=== PATIENT | female | born 1950 | race Caucasian/White ===

== ENCOUNTER 2016-10-15 00:55 | Emergency (ER) | payer MEDICARE, OTHER ==
[2016-10-15] MEDS ORDERED: ONDANSETRON 4 MG/2 ML VIAL IVP STA (02:07)
[2016-10-15] MEDS ORDERED: IPRATROPIUM-ALBUTEROL 3 ML NEB INHALATION STA (02:08)
[2016-10-15] MEDS ORDERED: SODIUM CHLORIDE 0.9% 1,000 ML IV ONE (02:08)
[2016-10-15] MEDS ORDERED: IBUPROFEN 600 MG STARTER PACK 4 TAB BTL PO STA (02:08)
[2016-10-15] MEDS ORDERED: ACETAMINOPHEN IV (For NPO) 1,000 MG in EMPTY BAG 1 BAG IVPB STA (02:12)
[2016-10-15 02:38] LABS: Basophils % (A) 1 %; CH 27.2; Eosinophils # (A) 0.2 k/uL (0-0.7); Eosinophils % (A) 3 %; HCT 36.8 % (34.0-46.0); HDW 2.54; HGB 11.7 gm/dL (11.4-16.0); Luc # (Auto) 0.21; Luc % (Auto) 3; Lymphocytes # (A) 0.8 k/uL (1.0-4.8); Lymphocytes % (A) 10 %; MCH 27.2 pg (25.0-35.0); MCHC 31.8 g/dL (31.0-37.0); MCV 85.6 fL (80.0-100.0); Mean Platelet Volume 7.3; Monocytes # (A) 0.4 k/uL (0-1.0); Monocytes % (A) 5 %; Neutrophils # (A) 6.2 k/uL (1.3-7.7); Neutrophils % (A) 80 %; RDW 15.1 % (11.5-15.5); WBC 7.8 k/uL (3.8-10.6); WBC (Perox) 8.07
--- NOTE | 2016-10-15 02:47 | ED ---
Abdominal Pain HPI - General Chief Complaint: Abdominal Pain Stated Complaint: fever,weakness,nausea Time Seen by Provider: 10/15/16 01:36 Source: patient, RN notes reviewed Mode of arrival: wheelchair Limitations: no limitations - History of Present Illness Initial Comments: Patient is a 66-year-old female chief complaint of fever and upper respiratory symptoms for approximately one day. She reports that she was seen at [facility] emergency department switch her to double ear infection and sinusitis and was placed on amoxicillin. She reports she took her antibiotic dose today. She states that she went to bed and then woke up with severe nauseated feeling. She denies taking any Motrin Tylenol for fever or pain. Patient reports that she felt very weak and felt that she needed to come the emergency department. She states that she's been trying the remain hydrated. She does have a significant cough. She states that she did see the initial provider yesterday they did no chest x-ray or any other lab work. They did swab her throat for strep which was negative. - Related Data Home Medications Medication Instructions Recorded Confirmed Cholecalciferol [Vitamin D3] 5,000 unit PO DAILY 05/29/14 05/30/14 Diazepam [Valium] 5 mg PO TID PRN 05/29/14 05/30/14 FLUoxetine HCL [PROzac] 80 mg PO DAILY 05/29/14 05/30/14 Hydrochlorothiazide 25 mg PO DAILY 05/29/14 05/30/14 Levothyroxine Sodium [Synthroid] 75 mcg PO DAILY 05/29/14 05/30/14 Loratadine [Claritin] 10 mg PO DAILY 05/29/14 05/30/14 Pantoprazole Sodium [Protonix] 40 mg PO DAILY 05/29/14 05/30/14 Sucralfate [Carafate] 1 gm PO ACHS 05/29/14 05/30/14 traZODone HCL [Desyrel] 150 mg PO HS 05/29/14 05/30/14 Previous Rx's Medication Instructions Recorded Ondansetron Odt [Zofran Odt] 4 mg PO Q8HR PRN #12 tab 10/15/16 Allergies Allergy/AdvReac Type Severity Reaction Status Date / Time Iodinated Contrast Media - Allergy Anaphylaxis Verified 10/15/16 01:26 Oral and [Iodinated Contrast Media - IV Dye] Review of Systems ROS Statement: Those systems with pertinent positive or pertinent negative responses have been documented in the HPI. ROS Other: All systems not noted in ROS Statement are negative. Past Medical History Past Medical History: Deep Vein Thrombosis (DVT), Fibromyalgia, GERD/Reflux, Hyperlipidemia, Hypertension, Pulmonary Embolus (PE), Rheumatoid Arthritis (RA) , Thyroid Disorder Additional Past Medical History / Comment(s): colitis, migraines, "inflammed stomach", hx PE 2011, spinal stenosis History of Any Multi-Drug Resistant Organisms: None Reported Past Surgical History: Bariatric Surgery, Joint Replacement, Orthopedic Surgery , Tonsillectomy Additional Past Surgical History / Comment(s): lap band, then removed, knee surg., left and right knee replaced Past Anesthesia/Blood Transfusion Reactions: Motion Sickness, Postoperative Nausea & Vomiting (PONV) Past Psychological History: Anxiety, Depression Smoking Status: Former smoker Past Alcohol Use History: Occasional Past Drug Use History: None Reported General Exam Limitations: no limitations Course Vital Signs 10/15/16 01:20 Temperature 100.3 F H Pulse Rate 77 Respiratory 18 Rate Blood Pressure 120/84 O2 Sat by Pulse 98 Oximetry Medical Decision Making - Medical Decision Making Patient is a 66-year-old female chief complaint of fever and upper respiratory symptoms for approximately one day. She reports that she was seen at [facility] emergency department switch her to double ear infection and sinusitis and was placed on amoxicillin. She reports she took her antibiotic dose today. She states that she went to bed and then woke up with severe nauseated feeling. She denies taking any Motrin Tylenol for fever or pain. Patient reports that she felt very weak and felt that she needed to come the emergency department. She states that she's been trying the remain hydrated. She does have a significant cough. She states that she did see the initial provider yesterday they did no chest x-ray or any other lab work. They did swab her throat for strep which was negative. Patient is given IV fluids and lab work was obtained. Chest x-ray and KUB also obtained. Patient's chest x-ray and abdominal x-ray showed no evidence of any acute process. Patient's labs are also negative for anything acute. Negative influenza screen. Patient was given Ofirmev and by mouth ibuprofen. Patient reports that she is feeling better at this time. I discussed that she needs to complete the antibiotic and is too early to switch anything at this time. Patient agrees. Patient advised to follow up with Dr. Flores on Monday. I discussed that she should return to emergency department if any worsening signs or symptoms occur. Patient agrees with treatment plan will comply. Patient will be given a prescription for Zofran for her nausea. - Lab Data Result diagrams: 10/15/16 02:25 10/15/16 02:25 Lab Results 10/15/16 10/15/16 10/15/16 Range/Units 02:25 02:25 02:25 WBC 7.8 (3.8-10.6) k/uL RBC 4.30 (3.80-5.40) m/uL Hgb 11.7 (11.4-16.0) gm/dL Hct 36.8 (34.0-46.0) % MCV 85.6 (80.0-100.0) fL MCH 27.2 (25.0-35.0) pg MCHC 31.8 (31.0-37.0) g/dL RDW 15.1 (11.5-15.5) % Plt Count 264 (150-450) k/uL Neutrophils % 80 % Lymphocytes % 10 % Monocytes % 5 % Eosinophils % 3 % Basophils % 1 % Neutrophils # 6.2 (1.3-7.7) k/uL Lymphocytes # 0.8 L (1.0-4.8) k/uL Monocytes # 0.4 (0-1.0) k/uL Eosinophils # 0.2 (0-0.7) k/uL Basophils # 0.0 (0-0.2) k/uL Sodium 141 (137-145) mmol/L Potassium 3.9 (3.5-5.1) mmol/L Chloride 102 (98-107) mmol/L Carbon Dioxide 28 (22-30) mmol/L Anion Gap 11 mmol/L BUN 10 (7-17) mg/dL Creatinine 0.70 (0.52-1.04) mg/dL Est GFR (MDRD) Af Amer >60 (>60 ml/min/1.73 sqM) Est GFR (MDRD) Non-Af >60 (>60 ml/min/1.73 sqM) Glucose 100 H (74-99) mg/dL Calcium 8.9 (8.4-10.2) mg/dL Total Bilirubin 0.4 (0.2-1.3) mg/dL AST 24 (14-36) U/L ALT 28 (9-52) U/L Alkaline Phosphatase 79 (38-126) U/L Total Protein 6.7 (6.3-8.2) g/dL Albumin 3.9 (3.5-5.0) g/dL Amylase 49 (30-110) U/L Lipase 36 (23-300) U/L Urine Color Urine Appearance (Clear) Urine pH (5.0-8.0) Ur Specific [place] (1.001-1.035) Urine Protein (Negative) Urine Glucose (UA) (Negative) Urine Ketones (Negative) Urine Blood (Negative) Urine Nitrite (Negative) Urine Bilirubin (Negative) Urine Urobilinogen (<2.0) mg/dL Ur Leukocyte Esterase (Negative) Influenza Type A RNA Not Detected (Not Detectd) Influenza Type B (PCR) Not Detected (Not Detectd) 10/15/16 Range/Units 03:30 WBC (3.8-10.6) k/uL RBC (3.80-5.40) m/uL Hgb (11.4-16.0) gm/dL Hct (34.0-46.0) % MCV (80.0-100.0) fL MCH (25.0-35.0) pg MCHC (31.0-37.0) g/dL RDW (11.5-15.5) % Plt Count (150-450) k/uL Neutrophils % % Lymphocytes % % Monocytes % % Eosinophils % % Basophils % % Neutrophils # (1.3-7.7) k/uL Lymphocytes # (1.0-4.8) k/uL Monocytes # (0-1.0) k/uL Eosinophils # (0-0.7) k/uL Basophils # (0-0.2) k/uL Sodium (137-145) mmol/L Potassium (3.5-5.1) mmol/L Chloride (98-107) mmol/L Carbon Dioxide (22-30) mmol/L Anion Gap mmol/L BUN (7-17) mg/dL Creatinine (0.52-1.04) mg/dL Est GFR (MDRD) Af Amer (>60 ml/min/1.73 sqM) Est GFR (MDRD) Non-Af (>60 ml/min/1.73 sqM) Glucose (74-99) mg/dL Calcium (8.4-10.2) mg/dL Total Bilirubin (0.2-1.3) mg/dL AST (14-36) U/L ALT (9-52) U/L Alkaline Phosphatase (38-126) U/L Total Protein (6.3-8.2) g/dL Albumin (3.5-5.0) g/dL Amylase (30-110) U/L Lipase (23-300) U/L Urine Color Yellow Urine Appearance Clear (Clear) Urine pH 6.5 (5.0-8.0) Ur Specific [place] 1.015 (1.001-1.035) Urine Protein Negative (Negative) Urine Glucose (UA) Negative (Negative) Urine Ketones 1+ H (Negative) Urine Blood Negative (Negative) Urine Nitrite Negative (Negative) Urine Bilirubin Negative (Negative) Urine Urobilinogen <2.0 (<2.0) mg/dL Ur Leukocyte Esterase Negative (Negative) Influenza Type A RNA (Not Detectd) Influenza Type B (PCR) (Not Detectd) Disposition Clinical Impression: Nausea, Fever, Upper respiratory infection Disposition: HOME SELF-CARE Condition: Good Instructions: Upper Respiratory Infection (ED) Additional Instructions: Rest, increase fluids. Take nausea medication as directed. Continue to take Motrin Tylenol every 3 hours. Finish antibiotic prescription. Return to emergency department if any alarming signs or symptoms occur. Follow-up with primary care provider on Monday. Prescriptions: Ondansetron Odt [Zofran Odt] 4 mg PO Q8HR PRN #12 tab PRN Reason: Nausea Referrals: Omid Flores MD [Primary Care Provider] - 1-2 days Time of Disposition: 03:48
--- NOTE | 2016-10-15 02:50 | XR ---
EXAM: XR Chest, 2 Views. CLINICAL HISTORY: Reason: Pain TECHNIQUE: Frontal and lateral views of the chest. COMPARISON:02/07/11. FINDINGS: Lungs: Unremarkable. No consolidation. Pleural space: Unremarkable. No pneumothorax. Heart: Stable prominent cardiovascular silhouette. Mediastinum: Tortuous calcified thoracic aorta, unchanged. Bones/joints: Mild degenerative changes in the thoracic spine. Other findings: IMPRESSION: Stable mild cardiomegaly. No dense consolidation or effusion
[2016-10-15 02:51] LABS: ALT 28 U/L (9-52); AST 24 U/L (14-36); Alkaline Phosphatase 79 U/L (38-126); Amylase 49 U/L (30-110); Anion Gap 11 mmol/L; Blood Urea Nitrogen 10 mg/dL (7-17); Calcium 8.9 mg/dL (8.4-10.2); Carbon Dioxide 28 mmol/L (22-30); Chloride 102 mmol/L (98-107); Glucose 100 mg/dL (74-99); Non-African American GFR(MDRD) >60 (>60 ml/min/1.73 sqM); Potassium 3.9 mmol/L (3.5-5.1); Sodium 141 mmol/L (137-145); Total Bilirubin 0.4 mg/dL (0.2-1.3); Total Protein 6.7 g/dL (6.3-8.2)
--- NOTE | 2016-10-15 03:06 | XR ---
EXAM: XR Abdomen, 1 View. CLINICAL HISTORY: Reason: Pain TECHNIQUE: Frontal supine view of the abdomen/pelvis. COMPARISON: 02/07/11 FINDINGS: Intraperitoneal space: No free air. Gastrointestinal tract: Gas filled small and large bowel loops identified. Mild retained stool. Few scattered air-fluid levels in distal small bowel loops. This is nonspecific. Organs: Faint calcific density projecting over the right midabdomen seen at L3 level. This measures approximately 3.6 mm. This may represent renal calculus. Multiple calcifications in the pelvis remain unchanged likely phleboliths. Bones/joints: See above. IMPRESSION: 1. Nonspecific bowel gas pattern with mild retained stool. 2. No free air. 3. Possible right renal calculus. Consider further evaluation with noncontrast CT of abdomen and pelvis for better visualization as indicated
[2016-10-15 03:42] LABS: Appearance,Urine Clear (Clear); Bilirubin,Urine Negative (Negative); Glucose,Urine (UA) Negative (Negative); Ketones,Urine 1+ (Negative); Leukocyte Esterase,Urine Negative (Negative); Nitrite,Urine Negative (Negative); PH, Urine 6.5 (5.0-8.0); Protein,Urine Negative (Negative); Specific Gravity,Urine 1.015 (1.001-1.035); UA Billing (MACRO vs. MICRO) CHEM; Urobilinogen,Urine <2.0 mg/dL (<2.0)
[2016-10-15] MEDS ORDERED: ONDANSETRON 4 MG ODT STARTER PACK 2 TAB BTL PO STA (03:46)
[2016-10-15 03:57] VITALS: BP 134/76; PULSE 88; RESP 19; TEMP 98.8
== END 2016-10-15 03:56 | disposition home or self-care (01) ==
LOC: EC 00:55
DX: R11.0 Nausea (principal); J06.9 Acute upper respiratory infection, unspecified; R10.9 Unspecified abdominal pain; R50.9 Fever, unspecified; I10 Essential (primary) hypertension; E07.9 Disorder of thyroid, unspecified; M06.9 Rheumatoid arthritis, unspecified; K21.9 Gastro-esophageal reflux disease without esophagitis; F32.9 Major depressive disorder, single episode, unspecified; F41.9 Anxiety disorder, unspecified; Z79.899 Other long term (current) drug therapy; Z87.891 Personal history of nicotine dependence; Z91.041 Radiographic dye allergy status; Z98.84 Bariatric surgery status
CPT/HCPCS: 36415; 94640; 80053; 82150; 83690; 85025; 81003; 87502; 71020; 74000; 99284; 96374; 96375; J2405; J0131; S0119

== ENCOUNTER → 2016-10-21 | Outpatient (CLI) | payer MEDICARE, OTHER ==
--- NOTE | 2016-10-21 10:50 | FL ---
EXAMINATION TYPE: FL small bowel follow through DATE OF EXAM: 10/21/2016 10:23 AM COMPARISON: NONE HISTORY: Rectal bleeding TECHNIQUE: The patient drank 2 cups of dilute barium. This was followed from the stomach to cecum. Th e terminal ileum was spotted. FINDINGS: Small bowel caliber is normal. The mucosal pattern throughout the small bowel is normal. Th e terminal ileum was spotted and appears unremarkable. IMPRESSION: NORMAL DEDICATED SMALL BOWEL FOLLOW-THROUGH.
== END | disposition home or self-care (01) ==
LOC: RADFLMAIN 08:37
PROVIDERS: ATTEND Surgery
DX: K92.2 Gastrointestinal hemorrhage, unspecified (principal)
CPT/HCPCS: 74250

== ENCOUNTER 2016-11-01 09:38 | Observation (INO) | payer MEDICARE, OTHER ==
[2016-11-01] MEDS ORDERED: SODIUM CHLORIDE 0.9% 1,000 ML IV STA (10:12)
[2016-11-01] MEDS ORDERED: ASPIRIN 81 MG CHEW PO STA (10:12)
--- NOTE | 2016-11-01 10:17 | ED ---
General Adult HPI - General Source: patient, RN notes reviewed Mode of arrival: ambulatory Limitations: no limitations <Kathie Stafford - Last Filed: 11/01/16 11:50> <Pete Dumont - Last Filed: 11/01/16 12:11> - General Chief complaint: Chest Pain Stated complaint: shoulder/chest pain Time Seen by Provider: 11/01/16 10:06 - History of Present Illness Initial comments: 66-year-old female presents emergency Department with chief complaint of a stabbing chest pain to the left upper chest. Patient states it started yesterday she went to her Dr. Paredes x-ray that was negative. Patient states today the pain is worse and is radiating to the back. Patient states she has had a cough episode of nausea with this. Patient states that she also has some shortness of breath. Patient denies any fever chills with this. Patient denies any other symptoms. Patient states that she feels somewhat ill but she has more the nausea. She thinks is more related to the pain as well. Patient states that she doesn't feel like she is sick with a cold. Patient states that she does have a history of a PE and DVT following an admission to the hospital. Patient is no longer on blood thinners.Patient denies any recent fever, chills , back pain, abdominal pain, vomiting, numbness or tingling, dysuria or hematuria, constipation or diarrhea, headaches or visual changes, or any other current symptoms. (Kathie Stafford) - Related Data Home Medications Medication Instructions Recorded Confirmed Cholecalciferol [Vitamin D3] 5,000 unit PO DAILY 05/29/14 11/01/16 Diazepam [Valium] 5 mg PO BID 05/29/14 11/01/16 FLUoxetine HCL [PROzac] 80 mg PO DAILY 05/29/14 11/01/16 Hydrochlorothiazide 25 mg PO DAILY 05/29/14 11/01/16 Levothyroxine Sodium [Synthroid] 75 mcg PO DAILY 05/29/14 11/01/16 Aspirin 81 mg PO DAILY 11/01/16 11/01/16 Ibuprofen [Motrin] 600 mg PO Q8HR PRN 11/01/16 11/01/16 Pantoprazole Sodium 20 mg PO DAILY 11/01/16 11/01/16 amLODIPine BESYLATE [Amlodipine 2.5 mg PO DAILY 11/01/16 11/01/16 Besylate] Previous Rx's Medication Instructions Recorded Ondansetron Odt [Zofran Odt] 4 mg PO Q8HR PRN #12 tab 10/15/16 Allergies Allergy/AdvReac Type Severity Reaction Status Date / Time Iodinated Contrast Media - Allergy Anaphylaxis Verified 11/01/16 10:13 Oral and [Iodinated Contrast Media - IV Dye] Review of Systems ROS Other: All systems not noted in ROS Statement are negative. <Kathie Stafford - Last Filed: 11/01/16 11:50> ROS Other: All systems not noted in ROS Statement are negative. <Pete Dumont - Last Filed: 11/01/16 12:11> ROS Statement: Those systems with pertinent positive or pertinent negative responses have been documented in the HPI. Past Medical History Past Medical History: Deep Vein Thrombosis (DVT), Fibromyalgia, GERD/Reflux, Hyperlipidemia, Hypertension, Pulmonary Embolus (PE), Rheumatoid Arthritis (RA) , Thyroid Disorder Additional Past Medical History / Comment(s): colitis, migraines, "inflammed stomach", hx PE 2011, spinal stenosis History of Any Multi-Drug Resistant Organisms: None Reported Past Surgical History: Bariatric Surgery, Joint Replacement, Orthopedic Surgery , Tonsillectomy Additional Past Surgical History / Comment(s): lap band, then removed, knee surg., left and right knee replaced Past Anesthesia/Blood Transfusion Reactions: Motion Sickness, Postoperative Nausea & Vomiting (PONV) Past Psychological History: Anxiety, Depression Smoking Status: Former smoker Past Alcohol Use History: Occasional Past Drug Use History: None Reported <Kathie Stafford - Last Filed: 11/01/16 11:50> General Exam Limitations: no limitations <Kathie Stafford - Last Filed: 11/01/16 11:50> <Pete Dumont - Last Filed: 11/01/16 12:11> - General Exam Comments Initial Comments: General: The patient is awake and alert, in no distress, and does not appear acutely ill. Eye: Pupils are equal, round and reactive to light, extra-ocular movements are intact; there is normal conjunctiva bilaterally. No signs of icterus. Ears, nose, mouth and throat: There are moist mucous membranes and no oral lesions. Neck: The neck is supple, there is no tenderness. Cardiovascular: There is a regular rate and rhythm. No murmur, rub or gallop is appreciated. Respiratory: Lungs are clear to auscultation, respirations are non-labored, breath sounds are equal. No wheezes, stridor, rales, or rhonchi. Gastrointestinal: Soft, non-distended, non-tender abdomen without masses or organomegaly noted. There is no rebound or guarding present. No CVA tenderness. Bowel sounds are unremarkable. Back: There is no tenderness to palpation in the midline. She has tenderness along the left upper chest wall. There is no obvious deformity. No rashes noted. Musculoskeletal: Normal ROM, no tenderness, There is no pedal edema. There is no calf tenderness or swelling. Sensation intact. Pulses equal bilaterally 2+. Neurological: CN II-XII intact, There are no obvious motor or sensory deficits. Coordination appears grossly intact. Speech is normal. Skin: Skin is warm and dry and no rashes or lesions are noted. Psychiatric: Cooperative, appropriate mood & affect, normal judgment. (Kathie Stafford) EKG Findings - EKG Comments: EKG Findings:: normal sinus rhythm 65 bpm, normal axis, no atopy, no S-T depressions or elevations, LVH <Kathie Stafford - Last Filed: 11/01/16 11:50> Medical Decision Making - Lab Data Result diagrams: 11/01/16 10:25 11/01/16 10:25 <Kathie Stafford - Last Filed: 11/01/16 11:50> - Lab Data Result diagrams: 11/01/16 10:25 11/01/16 10:25 <Pete Dumont - Last Filed: 11/01/16 12:11> - Medical Decision Making 66-year-old female presents to emergency room chief complaint of stabbing type chest pain. At this time patient's d-dimer is negative initial enzymes are negative. We will admit patient for continued cardiac monitoring and cardiac consultation. This is discussed with the patient who is in agreement with the plan. Patient does have the shortness of breath associated with a stabbing chest pain as well as nausea with the patient's age and there is some concern. Patient will be admitted to Dr. Miller. (Kathie Stafford) Patient reevaluated by myself, Dr. Dumont. Patient resting comfortably in bed still complaining of discomfort. Patient denies dyspnea. Pulses 2/4 throughout. Heart rate regular rate and rhythm without murmurs. Lungs are clear to auscultation. Case discussed with Dr. jaimes, who will admit for Dr. Flores. (Pete Dumont) - Lab Data Lab Results 11/01/16 11/01/16 11/01/16 Range/Units 10:25 10:25 10:25 WBC 6.5 (3.8-10.6) k/uL RBC 4.37 (3.80-5.40) m/uL Hgb 12.1 (11.4-16.0) gm/dL Hct 38.5 (34.0-46.0) % MCV 88.1 (80.0-100.0) fL MCH 27.7 (25.0-35.0) pg MCHC 31.4 (31.0-37.0) g/dL RDW 14.8 (11.5-15.5) % Plt Count 343 (150-450) k/uL Neutrophils % 68 % Lymphocytes % 22 % Monocytes % 4 % Eosinophils % 3 % Basophils % 1 % Neutrophils # 4.4 (1.3-7.7) k/uL Lymphocytes # 1.4 (1.0-4.8) k/uL Monocytes # 0.3 (0-1.0) k/uL Eosinophils # 0.2 (0-0.7) k/uL Basophils # 0.1 (0-0.2) k/uL Hypochromasia Slight PT (9.0-12.0) sec INR (<1.1) APTT (22.0-30.0) sec D-Dimer (<0.60) mg/L FEU Sodium 142 (137-145) mmol/L Potassium 4.3 (3.5-5.1) mmol/L Chloride 104 (98-107) mmol/L Carbon Dioxide 28 (22-30) mmol/L Anion Gap 10 mmol/L BUN 23 H (7-17) mg/dL Creatinine 0.64 (0.52-1.04) mg/dL Est GFR (MDRD) Af Amer >60 (>60 ml/min/1.73 sqM) Est GFR (MDRD) Non-Af >60 (>60 ml/min/1.73 sqM) Glucose 95 (74-99) mg/dL Calcium 9.2 (8.4-10.2) mg/dL Magnesium 1.9 (1.6-2.3) mg/dL Total Bilirubin 0.5 (0.2-1.3) mg/dL AST 18 (14-36) U/L ALT 21 (9-52) U/L Alkaline Phosphatase 77 (38-126) U/L Total Creatine Kinase 32 (30-135) U/L CK-MB (CK-2) <0.2 (0.0-2.4) ng/mL CK-MB (CK-2) Rel Index Troponin I <0.012 (0.000-0.034) ng/mL Total Protein 7.3 (6.3-8.2) g/dL Albumin 4.1 (3.5-5.0) g/dL 11/01/16 Range/Units 10:25 WBC (3.8-10.6) k/uL RBC (3.80-5.40) m/uL Hgb (11.4-16.0) gm/dL Hct (34.0-46.0) % MCV (80.0-100.0) fL MCH (25.0-35.0) pg MCHC (31.0-37.0) g/dL RDW (11.5-15.5) % Plt Count (150-450) k/uL Neutrophils % % Lymphocytes % % Monocytes % % Eosinophils % % Basophils % % Neutrophils # (1.3-7.7) k/uL Lymphocytes # (1.0-4.8) k/uL Monocytes # (0-1.0) k/uL Eosinophils # (0-0.7) k/uL Basophils # (0-0.2) k/uL Hypochromasia PT 10.0 (9.0-12.0) sec INR 1.0 (<1.1) APTT 22.9 (22.0-30.0) sec D-Dimer 0.20 (<0.60) mg/L FEU Sodium (137-145) mmol/L Potassium (3.5-5.1) mmol/L Chloride (98-107) mmol/L Carbon Dioxide (22-30) mmol/L Anion Gap mmol/L BUN (7-17) mg/dL Creatinine (0.52-1.04) mg/dL Est GFR (MDRD) Af Amer (>60 ml/min/1.73 sqM) Est GFR (MDRD) Non-Af (>60 ml/min/1.73 sqM) Glucose (74-99) mg/dL Calcium (8.4-10.2) mg/dL Magnesium (1.6-2.3) mg/dL Total Bilirubin (0.2-1.3) mg/dL AST (14-36) U/L ALT (9-52) U/L Alkaline Phosphatase (38-126) U/L Total Creatine Kinase (30-135) U/L CK-MB (CK-2) (0.0-2.4) ng/mL CK-MB (CK-2) Rel Index Troponin I (0.000-0.034) ng/mL Total Protein (6.3-8.2) g/dL Albumin (3.5-5.0) g/dL Disposition Time of Disposition: 11:50 Decision Date: 11/01/16 Decision Time: 11:50 <Kathie Stafford - Last Filed: 11/01/16 11:50> <Pete Dumont - Last Filed: 11/01/16 12:11> Clinical Impression: Chest pain Disposition: ADMITTED IP TO THIS [facility] Condition: Stable Referrals: Omid Flores MD [Primary Care Provider] - 1-2 days
[2016-11-01 10:32] LABS: Basophils # (A) 0.1 k/uL (0-0.2); Basophils % (A) 1 %; CH 26.9; CHCM 30.7; Eosinophils # (A) 0.2 k/uL (0-0.7); Eosinophils % (A) 3 %; HCT 38.5 % (34.0-46.0); HDW 2.38; HGB 12.1 gm/dL (11.4-16.0); Hypochromasia Slight; Luc # (Auto) 0.14; Luc % (Auto) 2; Lymphocytes # (A) 1.4 k/uL (1.0-4.8); Lymphocytes % (A) 22 %; MCH 27.7 pg (25.0-35.0); MCHC 31.4 g/dL (31.0-37.0); MCV 88.1 fL (80.0-100.0); Mean Platelet Volume 6.6; Monocytes # (A) 0.3 k/uL (0-1.0); Monocytes % (A) 4 %; Neutrophils # (A) 4.4 k/uL (1.3-7.7); Neutrophils % (A) 68 %; RBC 4.37 m/uL (3.80-5.40); RDW 14.8 % (11.5-15.5); WBC 6.5 k/uL (3.8-10.6); WBC (Perox) 6.29
[2016-11-01 10:47] LABS: Partial Thromboplastin Time 22.9 sec (22.0-30.0)
[2016-11-01 10:57] LABS: ALT 21 U/L (9-52); AST 18 U/L (14-36); Alkaline Phosphatase 77 U/L (38-126); Anion Gap 10 mmol/L; Blood Urea Nitrogen 23 mg/dL (7-17); Calcium 9.2 mg/dL (8.4-10.2); Carbon Dioxide 28 mmol/L (22-30); Chloride 104 mmol/L (98-107); Glucose 95 mg/dL (74-99); Magnesium 1.9 mg/dL (1.6-2.3); Non-African American GFR(MDRD) >60 (>60 ml/min/1.73 sqM); Potassium 4.3 mmol/L (3.5-5.1); Sodium 142 mmol/L (137-145); Total Bilirubin 0.5 mg/dL (0.2-1.3); Total Protein 7.3 g/dL (6.3-8.2)
[2016-11-01 11:02] LABS: Creatine Kinase 32 U/L (30-135)
[2016-11-01 11:15] LABS: Creatine Kinase MB <0.2 ng/mL (0.0-2.4); Troponin I <0.012 ng/mL (0.000-0.034)
--- NOTE | 2016-11-01 11:19 | XR ---
EXAMINATION TYPE: XR chest 2V DATE OF EXAM: 11/01/2016 10:39 AM COMPARISON: Prior chest x-ray October 15, 2016. HISTORY: Cough. TECHNIQUE: Frontal and lateral views of the chest are obtained. FINDINGS: There is no focal air space opacity, pleural effusion, or pneumothorax seen. The cardiac silhouette size is stable and enlarged. The osseous structures are intact. IMPRESSION: Cardiomegaly without acute pulmonary process.
[2016-11-01] MEDS ORDERED: NITROGLYCERIN OINT 1 INCH/GM PACKET TOPICAL STA (11:45)
[2016-11-01] MEDS ORDERED: MORPHINE SULFATE 4 MG/ML SYRINGE IVP STA (11:45)
[2016-11-01] MEDS ORDERED: NALOXONE 0.4 MG/ML 1 ML VIAL IV PRN (11:46)
[2016-11-01] MEDS ORDERED: ONDANSETRON ODT 4 MG TAB PO PRN (11:48)
[2016-11-01] MEDS ORDERED: IBUPROFEN 600 MG TAB PO PRN (11:48)
[2016-11-01] MEDS ORDERED: SODIUM CHLORIDE 0.9% 1,000 ML IV SCH (12:00)
[2016-11-01] MEDS: MORPHINE SULFATE 4 MG/ML SYRINGE IV PRN (16:18)
[2016-11-01 17:02] LABS: Creatine Kinase 24 U/L (30-135)
[2016-11-01 17:14] LABS: Creatine Kinase MB <0.2 ng/mL (0.0-2.4); Troponin I <0.012 ng/mL (0.000-0.034)
[2016-11-01] MEDS ORDERED: HYDROmorphone 1 MG/ML 1 ML SYRINGE IVP PRN (18:51)
[2016-11-01] MEDS: DIAZEPAM 5 MG TAB PO SCH ×2 (18:58→23:10)
[2016-11-01] MEDS ORDERED: DIAZEPAM 5 MG TAB PO SCH (21:00)
[2016-11-01 23:26] LABS: Creatine Kinase 21 U/L (30-135)
[2016-11-01 23:39] LABS: Creatine Kinase MB <0.2 ng/mL (0.0-2.4); Troponin I <0.012 ng/mL (0.000-0.034)
[2016-11-02] MEDS: MORPHINE SULFATE 4 MG/ML SYRINGE IV PRN ×3 (03:16→15:58)
[2016-11-02] MEDS ORDERED: LEVOTHYROXINE 75 MCG TAB PO SCH (06:30)
[2016-11-02] MEDS ORDERED: PANTOPRAZOLE 40 MG TABLET PO SCH (07:30)
[2016-11-02 07:35] LABS: Basophils % (A) 1 %; Eosinophils # (A) 0.2 k/uL (0-0.7); Eosinophils % (A) 5 %; HCT 33.2 % (34.0-46.0); HDW 2.35; Hypochromasia Marked; Luc # (Auto) 0.15; Luc % (Auto) 3; Lymphocytes # (A) 1.7 k/uL (1.0-4.8); Lymphocytes % (A) 33 %; MCH 26.8 pg (25.0-35.0); MCHC 29.6 g/dL (31.0-37.0); MCV 90.7 fL (80.0-100.0); Mean Platelet Volume 6.6; Monocytes # (A) 0.3 k/uL (0-1.0); Monocytes % (A) 7 %; Neutrophils # (A) 2.6 k/uL (1.3-7.7); Neutrophils % (A) 52 %; RBC 3.66 m/uL (3.80-5.40); RDW 14.8 % (11.5-15.5); WBC (Perox) 5.13
[2016-11-02 07:38] LABS: ALT 26 U/L (9-52); AST 14 U/L (14-36); Alkaline Phosphatase 64 U/L (38-126); Anion Gap 7 mmol/L; Blood Urea Nitrogen 18 mg/dL (7-17); Calcium 8.1 mg/dL (8.4-10.2); Carbon Dioxide 28 mmol/L (22-30); Chloride 106 mmol/L (98-107); Glucose 82 mg/dL (74-99); HGB 9.8 gm/dL (11.4-16.0); Non-African American GFR(MDRD) >60 (>60 ml/min/1.73 sqM); Sodium 141 mmol/L (137-145); Total Bilirubin 0.4 mg/dL (0.2-1.3); Total Protein 5.6 g/dL (6.3-8.2)
--- NOTE | 2016-11-02 07:59 | CONS ---
DATE OF CONSULTATION: This is a 66-year-old lady who sees Dr. Ros Kruse in the outpatient setting and also sees Dr. Omid Flores as an outpatient from a primary care standpoint, came into the hospital with an episode of what she describes as chest pain. She complains of anterior chest pain with specifically tenderness over the rib and there is also some radiation laterally along to the back along the direction of her rib. This pain started spontaneously, she just moved her head and then suddenly started having pain in the chest. She has not done any physical activity to precipitate this. It is worse when she takes a deep breath and there is focal tenderness. Her d-dimer is normal. Within the last one year she had a stress test performed according to the patient in our office and this was normal. She does have history of rheumatoid arthritis, hypertensive cardiovascular disease, mild depression and hypothyroidism. At the time of my evaluation, she is comfortable, but when she takes a deep breath, she has point tenderness and pain. PAST MEDICAL HISTORY: 1. Rheumatoid arthritis. 2. Hypertension. 3. Hypothyroidism on replacement therapy. 4. Depression. Medications at home include Synthroid, ibuprofen, hydrochlorothiazide, 2.5 mg of amlodipine, Prozac and she also takes Valium and aspirin 81 mg daily. ALLERGIES: IV contrast. REVIEW OF SYSTEMS: Unremarkable other than above-mentioned facts. On examination, blood pressure is 136/70, pulse rate 70 per minute, regular. HEENT: Unremarkable. Fundus was not examined by me. Neck is supple. No JVD. I do not hear a carotid bruit. There is no thyromegaly. Heart exam reveals S1 and S2 heard normally. Lungs are clear. There is some splinting because she seems to have pain when she takes a deep breath. There is tenderness on the left anterior rib. Abdomen is soft, nontender. Lower extremities reveal normal pulses. No edema. Central nervous system is grossly within normal limits. EKG revealed sinus mechanism. No acute changes. IMPRESSION: 1. Musculoskeletal chest wall pain with tenderness. 2. History of osteoarthritis and rheumatoid arthritis, status post bilateral knee arthroplasty. 3. Hypertension. 4. Hypothyroidism. 5. History of a negative stress test per patient within the last one year. RECOMMENDATIONS: I am recommending that we will try some Dilaudid for the pain since she has taken Motrin without help. Hopefully this will help her pain. No intervention necessary from a cardiac standpoint. Her troponin levels are normal. Will check one additional troponin and give her some Dilaudid for symptomatic treatment and continue her other medications. I discussed my thoughts in detail with the patient. Thank you very much for the consult.
[2016-11-02] MEDS ORDERED: FLUoxetine HCL 20 MG CAP PO SCH (09:00)
[2016-11-02] MEDS ORDERED: amLODIPine 2.5 MG TAB PO SCH (09:00)
[2016-11-02] MEDS ORDERED: HYDROCHLOROTHIAZIDE 25 MG TAB PO SCH (09:00)
[2016-11-02] MEDS ORDERED: ASPIRIN 325 MG TAB PO SCH (09:00)
[2016-11-02 09:29] VITALS: BMI 39.2
[2016-11-02] MEDS: DIAZEPAM 5 MG TAB PO SCH (10:31)
[2016-11-02] MEDS ORDERED: CHOLECALCIFEROL 1,000 UNIT TAB PO SCH (12:00)
--- NOTE | 2016-11-02 12:02 | ECHOF ---
Referral Reason:chest pain MEASUREMENTS -------- HEIGHT: 162.6 cm WEIGHT: 103.4 kg BP: 147/71 RVIDd: 3.4 cm (< 3.3) IVSd: 1.6 cm (0.6 - 1.1) LVIDd: 4.2 cm (3.9 - 5.3) LVPWd: 1.5 cm (0.6 - 1.1) IVSs: 2.1 cm LVIDs: 2.7 cm LVPWs: 1.7 cm LA Diam: 2.7 cm (2.7 - 3.8) LAESV Index (A-L): 28.03 ml/m Ao Diam: 3.2 cm (2.0 - 3.7) AV Cusp: 1.5 cm (1.5 - 2.6) LA Diam: 2.6 cm (2.7 - 3.8) MV EXCURSION: 13.883 mm (> 18.000) MV EF SLOPE: 83 mm/s (70 - 150) EPSS: 0.4 cm MV E Mp: 0.67 m/s MV DecT: 228 ms MV A Mp: 0.65 m/s MV E/A Ratio: 1.03 AR PHT: 799 ms RAP: 5.00 mmHg RVSP: 43.88 mmHg FINDINGS -------- Sinus rhythm. This was a technically good study. There is moderate concentric left ventricular hypertrophy. Overall left ventricular systolic function is normal with, an EF between 55 - 60 %. The right ventricle is mildly enlarged. Normal LA size by volume 22+/-6 ml/m2. The right atrium is normal in size. Aortic valve is trileaflet and is mildly thickened. There is [id number] aortic regurgitation. The mitral valve leaflets are mildly thickened. Mild mitral annular calcification present. Mild mitral regurgitation is present. Mild tricuspid regurgitation present. There is mild pulmonary hypertension. The right ventricular systolic pressure, as measured by Doppler, is 43.88mmHg. Pulmonic valve appears structurally normal. The aortic root size is normal. There is no pericardial effusion. CONCLUSIONS -------- 1. Sinus rhythm. 2. The mitral valve leaflets are mildly thickened. 3. Mild mitral annular calcification present. 4. Mild mitral regurgitation is present. 5. Mild tricuspid regurgitation present. 6. There is mild pulmonary hypertension. 7. The right ventricular systolic pressure, as measured by Doppler, is 43.88mmHg. 8. Pulmonic valve appears structurally normal. 9. The aortic root size is normal. 10. There is no pericardial effusion. 11. This was a technically good study. 12. There is moderate concentric left ventricular hypertrophy. 13. Overall left ventricular systolic function is normal with, an EF between 55 - 60 %. 14. The right ventricle is mildly enlarged. 15. Normal LA size by volume 22+/-6 ml/m2. 16. The right atrium is normal in size. 17. Aortic valve is trileaflet and is mildly thickened. 18. There is [id number]-[id number] aortic regurgitation. DIRECTOR OF OCCUPATIONAL HEALTH: Cory Alvarez RDCS
--- NOTE | 2016-11-02 12:53 | HP ---
DATE OF ADMISSION: 11/01/2016 PRESENTING COMPLAINT: Left chest wall pain. HISTORY OF PRESENTING COMPLAINT: This is a very pleasant 66-year-old patient of Dr. Flores with rather extensive medical condition. Patient's chronic stable medical conditions include DVT, GERD, hyperlipidemia, hypertension, PE's, osteoarthritis of multiple joints, hypothyroid, rheumatoid arthritis, peptic ulcer disease, hiatal hernia, diverticulosis, spinal stenosis, chronic low back pain, anxiety, depression. Patient had sinus symptoms, draining nose and subsequently had bouts of coughing. Subsequently, she developed pain below the left clavicle, left shoulder area, which is worse deep breathing and worse with moving, sometimes feels very sharp, somebody is taking a dagger, very positional. She feels better in a position. There is no precordial pain, no radiation otherwise. No dizziness. Patient's family doctor was concerned of a cardiac condition; hence, patient was sent in to rule out a cardiac cause. Patient denies any cardiac history, otherwise. REVIEW OF SYSTEMS: CONSTITUTIONAL: None. HEENT: None. RESPIRATORY: None. CARDIOVASCULAR: No precordial pain. GASTROINTESTINAL: Heartburn. GENITOURINARY: None. MUSCULOSKELETAL: Aches and pains in multiple joints. DERMATOLOGICAL: None. HEMATOLOGICAL: None. LYMPHATICS: None. PSYCHIATRY: Some anxiety. NEUROLOGICAL: None. Past history of DVT, GERD, hyperlipidemia, hypertension, PE, osteoarthritis, hypothyroid, rheumatoid arthritis, peptic ulcer disease, hiatal hernia, diverticulosis, spinal stenosis, anxiety, depression. PAST SURGICAL HISTORY: Bariatric surgery, joint replacement, tonsillectomy, lap band, then removed, bilateral knee scopes, bilateral total knee replacement, colonoscopy, EGD. PSYCH HISTORY: Anxiety, depression. SOCIAL HISTORY: Lives by herself. Patient smoked from 1988 to 2008 off-and-on. Alcohol occasional. FAMILY HISTORY: Father had bladder cancer and heart condition. HOME MEDICATIONS: 1. Aspirin 81 mg a day. 2. Protonix 20 mg a day. 3. Vitamin D3 five thousand units p.o. daily. 4. Zofran 4 mg q.8 p.r.n. 5. Synthroid 75 mcg a day. 6. Ibuprofen 600 mg p.o. q.8 p.r.n. 7. Hydrochlorothiazide 25 mg p.o. daily. 8. Amlodipine 2.5 mg a day. 9. Prozac 80 mg a day. 10. Valium 5 mg p.o. b.i.d. Allergies to IV CONTRAST DYE. On examination, vital signs on presentation: Temperature 97.3, pulse 56, respiration 18, blood pressure 148/81, pulse ox 96% on room air. GENERAL APPEARANCE: Obese; BMI of 39.2, lying in bed, not in distress. EYES: Pupils equal. Conjunctivae normal. HEENT: External appearance of nose and ears normal. Oral cavity normal. NECK: JVD not raised. Mass not palpable. Respiratory effort normal. Lungs are clear. CARDIOVASCULAR: First and second sounds normal. No edema. ABDOMEN: Soft, nontender. Liver and spleen not palpable. LYMPHATIC: No lymph nodes palpable in neck or axillae. PSYCHIATRY: Alert and oriented x3. Mood and affect was normal. NEUROLOGICAL: Pupils equal. Cranial nerves grossly intact. Power and sensation grossly intact. MUSCULOSKELETAL: Patient got reproducible pain in the left clavicle area. INVESTIGATIONS: White count 5, hemoglobin 9.8, potassium 4.00. Chest x-ray, some cardiomegaly, nil acute. EKG normal sinus rhythm. ASSESSMENT: 1. This is a patient with left chest wall pain, could be either pleurisy from recent sinus infection, viral nature or musculoskeletal in nature. Because of cardiomegaly, there is a concern of the cardiac condition, hence Cardiology was concerned. 2. Obesity; body mass index of 39.2. 3. Chronic gastroesophageal reflux disease. 4. Essential hypertension. 5. Hyperlipidemia. 6. Primary osteoarthritis of multiple joints, bilateral. 7. Hypothyroid. 8. Peptic ulcer disease. 9. Chronic diverticulosis. 10. Chronic anxiety, depression, not otherwise specified. PLAN: Serial cardiac ( ), Cardiology was consulted. Care was discussed with the patient. Patient was given NSAIDs, hold off the ibuprofen.
[2016-11-02 13:03] VITALS: PULSE 64; TEMP 98.3
[2016-11-02 16:14] VITALS: BP 166/77; RESP 16
--- NOTE | 2016-11-02 22:21 | PN ---
Mrs. Espinoza is doing better today. Her chest wall pain is somewhat improved. Vital signs are stable. S1, S2 heard normally. Lungs are clear. Abdomen and lower extremity exam unchanged. From a cardiac standpoint, no intervention is necessary. Patient can be discharged on symptomatic therapy and I will leave it up to the primary care physician or hospitalist. Will see as needed.
== END 2016-11-02 18:25 | disposition home or self-care (01) ==
LOC: EC 09:38 → 3OBS 12:11
PROVIDERS: ADMIT Hospitalist; ATTEND Hospitalist
DX: R07.89 Other chest pain (principal); Z68.39 Body mass index [BMI] 39.0-39.9, adult; E66.9 Obesity, unspecified; K21.9 Gastro-esophageal reflux disease without esophagitis; I11.9 Hypertensive heart disease without heart failure; E78.5 Hyperlipidemia, unspecified; M19.91 Primary osteoarthritis, unspecified site; E03.9 Hypothyroidism, unspecified; K27.9 Peptic ulcer, site unspecified, unspecified as acute or chronic, without hemorrhage or perforation; K57.90 Diverticulosis of intestine, part unspecified, without perforation or abscess without bleeding; F41.9 Anxiety disorder, unspecified; F32.9 Major depressive disorder, single episode, unspecified; G89.29 Other chronic pain; M54.5 Low back pain; R05 Cough; R06.02 Shortness of breath; R11.0 Nausea; M06.9 Rheumatoid arthritis, unspecified; Z86.711 Personal history of pulmonary embolism; Z86.718 Personal history of other venous thrombosis and embolism; Z79.899 Other long term (current) drug therapy; Z79.82 Long term (current) use of aspirin; Z91.041 Radiographic dye allergy status; Z87.891 Personal history of nicotine dependence; Z96.653 Presence of artificial knee joint, bilateral; Z82.49 Family history of ischemic heart disease and other diseases of the circulatory system
CPT/HCPCS: 96374; 96361 ×2; 99285; 36415; 93005; 93306; 85379; 80053 ×2; 82550; 82553; 83735; 84484; 85025 ×2; 85610; 85730; 71020; G0378 ×2; J2270 ×2; J1170; 96375; 96376

== ENCOUNTER 2017-01-31 09:52 | Emergency (ER) | payer MEDICARE, OTHER ==
[2017-01-31] MEDS ORDERED: SODIUM CHLORIDE 0.9% 1,000 ML IV STA (10:12)
[2017-01-31] MEDS ORDERED: HYDROmorphone 1 MG/ML 1 ML SYRINGE IVP STA (10:12)
[2017-01-31] MEDS ORDERED: ONDANSETRON 4 MG/2 ML VIAL IVP STA (10:12)
[2017-01-31] MEDS ORDERED: PANTOPRAZOLE 40 MG/10 ML VIAL IVP STA (10:12)
--- NOTE | 2017-01-31 10:16 | ED ---
GI Bleed HPI - General Chief complaint: GI Bleed Stated complaint: Rectal Bleeding, Vomiting Time Seen by Provider: 01/31/17 10:00 Source: patient, RN notes reviewed Mode of arrival: wheelchair Limitations: no limitations - History of Present Illness Initial comments: This is a 66-year-old female history of diverticular disease in her mid episodes of bleeding also peptic ulcers who states she's had bright red blood per rectum for last week but started developing nausea and abdominal cramps today. She states goes from the epigastric region down to the suprapubic region. 12/31 severity she also has a headache. She's had decreased oral intake. No fevers chills or sweats. She does not feel lightheaded or dizzy at this point she states but it does progress that far which she had more bleeding. She does state that she has internal hemorrhoids. MD complaint: gross hematochezia - Related Data Home Medications Medication Instructions Recorded Confirmed Cholecalciferol [Vitamin D3] 5,000 unit PO DAILY 05/29/14 01/31/17 Diazepam [Valium] 5 mg PO BID 05/29/14 01/31/17 Hydrochlorothiazide 25 mg PO DAILY 05/29/14 01/31/17 Levothyroxine Sodium [Synthroid] 75 mcg PO DAILY 05/29/14 01/31/17 Aspirin 81 mg PO DAILY 11/01/16 01/31/17 amLODIPine BESYLATE [Amlodipine 2.5 mg PO DAILY 11/01/16 01/31/17 Besylate] Biotin 5 mg PO DAILY 01/31/17 01/31/17 Cyanocobalamin (Vitamin B-12) 1,000 mcg PO DAILY 01/31/17 01/31/17 [Vitamin B-12] FLUoxetine HCL [PROzac] 20 mg PO HS 01/31/17 01/31/17 FLUoxetine HCL [PROzac] 60 mg PO QAM 01/31/17 01/31/17 Ibuprofen [Motrin] 600 mg PO AC-TID PRN 01/31/17 01/31/17 Loratadine [Claritin] 10 mg PO DAILY 01/31/17 01/31/17 Pantoprazole Sodium [Protonix] 40 mg PO DAILY 01/31/17 01/31/17 Pravastatin Sodium [Pravachol] 20 mg PO DAILY 01/31/17 01/31/17 Previous Rx's Medication Instructions Recorded Hydrocortisone Suppository 25 mg RECTAL BID #14 supp 01/31/17 [Anusol-Hc] Allergies Allergy/AdvReac Type Severity Reaction Status Date / Time Iodinated Contrast Media - Allergy Anaphylaxis Verified 01/31/17 10:42 Oral and [Iodinated Contrast Media - IV Dye] Review of Systems ROS Statement: Those systems with pertinent positive or pertinent negative responses have been documented in the HPI. ROS Other: All systems not noted in ROS Statement are negative. Past Medical History Past Medical History: Asthma, Deep Vein Thrombosis (DVT), Fibromyalgia, GERD/ Reflux, GI Bleed, Hyperlipidemia, Hypertension, Pneumonia, Pulmonary Embolus (PE ), Rheumatoid Arthritis (RA), Thyroid Disorder Additional Past Medical History / Comment(s): Multiple PEs bilaterally, PUD, "inflammed stomach", hiatal hernia, IBS, colitis, diverticular dx, rectal bleed , bronchitis, migraines, low back pain, spinal stenosis, past vertigo once, migraines, hypothyroid, hayfever, sinus problems History of Any Multi-Drug Resistant Organisms: None Reported Past Surgical History: Bariatric Surgery, Joint Replacement, Orthopedic Surgery , Tonsillectomy Additional Past Surgical History / Comment(s): lap band-then removed, bilateral knee scopes with R side done twice, bilateral total knee replacements, colonoscopy/EGD, D&C Past Anesthesia/Blood Transfusion Reactions: Motion Sickness, Postoperative Nausea & Vomiting (PONV) Past Psychological History: Anxiety, Depression Smoking Status: Former smoker Past Alcohol Use History: Occasional Past Drug Use History: None Reported - Past Family History Father Family Medical History: Cancer Additional Family Medical History / Comment(s): Father is 88yrs old and has bladder cancer and a heart condition. Mother Family Medical History: Myocardial Infarction (CA) Additional Family Medical History / Comment(s): Mother of a massive CA at the age of 58yrs. General Exam - General Exam Comments Initial Comments: This is a well-developed well-nourished awake alert oriented 3 female Limitations: no limitations General appearance: alert, anxious Head exam: Present: atraumatic, normocephalic, normal inspection Eye exam: Present: normal appearance, PERRL, EOMI. Absent: scleral icterus, conjunctival injection, periorbital swelling ENT exam: Present: normal exam, mucous membranes moist Neck exam: Present: normal inspection. Absent: tenderness, meningismus, lymphadenopathy Respiratory exam: Present: normal lung sounds bilaterally. Absent: respiratory distress, wheezes, rales, rhonchi, stridor Cardiovascular Exam: Present: regular rate, normal rhythm, normal heart sounds. Absent: systolic murmur, diastolic murmur, rubs, gallop, clicks GI/Abdominal exam: Present: soft, tenderness (Mild), normal bowel sounds. Absent: distended, guarding, rebound, rigid Extremities exam: Present: normal inspection, full ROM, normal capillary refill. Absent: tenderness, pedal edema, joint swelling, calf tenderness Back exam: Present: normal inspection Neurological exam: Present: alert, oriented X3, CN II-XII intact Psychiatric exam: Present: normal affect, normal mood Skin exam: Present: warm, dry, intact, pallor. Absent: rash Course Vital Signs 01/31/17 01/31/17 01/31/17 09:57 10:34 11:34 Temperature 99.1 F Pulse Rate 79 58 L 54 L Respiratory 18 18 18 Rate Blood Pressure 137/86 132/77 125/67 O2 Sat by Pulse 97 96 94 L Oximetry 01/31/17 12:19 Temperature Pulse Rate 56 L Respiratory 18 Rate Blood Pressure 135/60 O2 Sat by Pulse 98 Oximetry Medical Decision Making - Medical Decision Making The patient showing much improved this time she will be discharged she is requesting to be discharged we placed on Anusol HC suppository she is follow-up with Dr. Sauceda and return when necessary - Lab Data Result diagrams: 01/31/17 10:15 01/31/17 10:15 Lab Results 01/31/17 01/31/17 01/31/17 Range/Units 10:15 10:15 10:15 WBC 5.2 (3.8-10.6) k/uL RBC 4.26 (3.80-5.40) m/uL Hgb 11.6 (11.4-16.0) gm/dL Hct 36.0 (34.0-46.0) % MCV 84.4 (80.0-100.0) fL MCH 27.2 (25.0-35.0) pg MCHC 32.3 (31.0-37.0) g/dL RDW 14.3 (11.5-15.5) % Plt Count 337 (150-450) k/uL Neutrophils % 60 % Lymphocytes % 27 % Monocytes % 6 % Eosinophils % 3 % Basophils % 1 % Neutrophils # 3.1 (1.3-7.7) k/uL Lymphocytes # 1.4 (1.0-4.8) k/uL Monocytes # 0.3 (0-1.0) k/uL Eosinophils # 0.2 (0-0.7) k/uL Basophils # 0.0 (0-0.2) k/uL PT (9.0-12.0) sec INR (<1.1) APTT (22.0-30.0) sec Sodium 141 (137-145) mmol/L Potassium 4.3 (3.5-5.1) mmol/L Chloride 104 (98-107) mmol/L Carbon Dioxide 27 (22-30) mmol/L Anion Gap 10 mmol/L BUN 16 (7-17) mg/dL Creatinine 0.80 (0.52-1.04) mg/dL Est GFR (MDRD) Af Amer >60 (>60 ml/min/1.73 sqM) Est GFR (MDRD) Non-Af >60 (>60 ml/min/1.73 sqM) Glucose 98 (74-99) mg/dL Calcium 9.6 (8.4-10.2) mg/dL Magnesium 1.9 (1.6-2.3) mg/dL Total Bilirubin 0.3 (0.2-1.3) mg/dL AST 19 (14-36) U/L ALT 30 (9-52) U/L Alkaline Phosphatase 78 (38-126) U/L Total Creatine Kinase 31 (30-135) U/L CK-MB (CK-2) 0.3 (0.0-2.4) ng/mL CK-MB (CK-2) Rel Index 1.0 Troponin I <0.012 (0.000-0.034) ng/mL Total Protein 6.8 (6.3-8.2) g/dL Albumin 4.2 (3.5-5.0) g/dL Amylase 71 (30-110) U/L Lipase 102 (23-300) U/L Stool Occult Blood (Negative) Blood Type Blood Type Recheck Antibody Screen Spec Expiration Date 01/31/17 01/31/17 01/31/17 Range/Units 10:15 10:15 10:58 WBC (3.8-10.6) k/uL RBC (3.80-5.40) m/uL Hgb (11.4-16.0) gm/dL Hct (34.0-46.0) % MCV (80.0-100.0) fL MCH (25.0-35.0) pg MCHC (31.0-37.0) g/dL RDW (11.5-15.5) % Plt Count (150-450) k/uL Neutrophils % % Lymphocytes % % Monocytes % % Eosinophils % % Basophils % % Neutrophils # (1.3-7.7) k/uL Lymphocytes # (1.0-4.8) k/uL Monocytes # (0-1.0) k/uL Eosinophils # (0-0.7) k/uL Basophils # (0-0.2) k/uL PT 9.9 (9.0-12.0) sec INR 1.0 (<1.1) APTT 23.5 (22.0-30.0) sec Sodium (137-145) mmol/L Potassium (3.5-5.1) mmol/L Chloride (98-107) mmol/L Carbon Dioxide (22-30) mmol/L Anion Gap mmol/L BUN (7-17) mg/dL Creatinine (0.52-1.04) mg/dL Est GFR (MDRD) Af Amer (>60 ml/min/1.73 sqM) Est GFR (MDRD) Non-Af (>60 ml/min/1.73 sqM) Glucose (74-99) mg/dL Calcium (8.4-10.2) mg/dL Magnesium (1.6-2.3) mg/dL Total Bilirubin (0.2-1.3) mg/dL AST (14-36) U/L ALT (9-52) U/L Alkaline Phosphatase (38-126) U/L Total Creatine Kinase (30-135) U/L CK-MB (CK-2) (0.0-2.4) ng/mL CK-MB (CK-2) Rel Index Troponin I (0.000-0.034) ng/mL Total Protein (6.3-8.2) g/dL Albumin (3.5-5.0) g/dL Amylase (30-110) U/L Lipase (23-300) U/L Stool Occult Blood Negative (Negative) Blood Type B Positive Blood Type Recheck B Pos Antibody Screen NEGATIVE Spec Expiration Date 02/03/2017 - 2314 Disposition Clinical Impression: Internal hemorrhoids, Abdominal pain Disposition: HOME SELF-CARE Condition: Good Instructions: Hemorrhoids (ED), Rectal Bleeding (ED) Prescriptions: Hydrocortisone Suppository [Anusol-Hc] 25 mg RECTAL BID #14 supp Referrals: Omid Flores MD [Primary Care Provider] - 1-2 days
[2017-01-31 10:42] LABS: Basophils % (A) 1 %; CH 26.6; CHCM 31.8; Eosinophils # (A) 0.2 k/uL (0-0.7); Eosinophils % (A) 3 %; HDW 2.41; HGB 11.6 gm/dL (11.4-16.0); Luc # (Auto) 0.14; Luc % (Auto) 3; Lymphocytes # (A) 1.4 k/uL (1.0-4.8); Lymphocytes % (A) 27 %; MCH 27.2 pg (25.0-35.0); MCHC 32.3 g/dL (31.0-37.0); MCV 84.4 fL (80.0-100.0); Mean Platelet Volume 6.9; Monocytes # (A) 0.3 k/uL (0-1.0); Monocytes % (A) 6 %; Neutrophils # (A) 3.1 k/uL (1.3-7.7); Neutrophils % (A) 60 %; RBC 4.26 m/uL (3.80-5.40); RDW 14.3 % (11.5-15.5); WBC 5.2 k/uL (3.8-10.6); WBC (Perox) 5.08
[2017-01-31 10:53] LABS: Partial Thromboplastin Time 23.5 sec (22.0-30.0); Prothrombin Time 9.9 sec (9.0-12.0)
[2017-01-31 10:56] LABS: ALT 30 U/L (9-52); AST 19 U/L (14-36); Alkaline Phosphatase 78 U/L (38-126); Amylase 71 U/L (30-110); Anion Gap 10 mmol/L; Blood Urea Nitrogen 16 mg/dL (7-17); Calcium 9.6 mg/dL (8.4-10.2); Carbon Dioxide 27 mmol/L (22-30); Chloride 104 mmol/L (98-107); Glucose 98 mg/dL (74-99); Magnesium 1.9 mg/dL (1.6-2.3); Non-African American GFR(MDRD) >60 (>60 ml/min/1.73 sqM); Potassium 4.3 mmol/L (3.5-5.1); Sodium 141 mmol/L (137-145); Total Bilirubin 0.3 mg/dL (0.2-1.3); Total Protein 6.8 g/dL (6.3-8.2)
[2017-01-31 11:06] LABS: Creatine Kinase 31 U/L (30-135)
[2017-01-31 11:19] LABS: Creatine Kinase MB 0.3 ng/mL (0.0-2.4); Troponin I <0.012 ng/mL (0.000-0.034)
[2017-01-31 12:20] VITALS: PULSE 56
[2017-01-31 13:01] VITALS: BP 128/62; RESP 15; TEMP 98.5
== END 2017-01-31 13:01 | disposition home or self-care (01) ==
LOC: EC 09:52
DX: K64.8 Other hemorrhoids (principal); R11.0 Nausea; K21.9 Gastro-esophageal reflux disease without esophagitis; E78.5 Hyperlipidemia, unspecified; I10 Essential (primary) hypertension; E03.9 Hypothyroidism, unspecified; F41.9 Anxiety disorder, unspecified; F32.9 Major depressive disorder, single episode, unspecified; M79.7 Fibromyalgia; Z87.891 Personal history of nicotine dependence; Z79.82 Long term (current) use of aspirin; Z79.899 Other long term (current) drug therapy; Z91.041 Radiographic dye allergy status; Z87.11 Personal history of peptic ulcer disease; Z98.84 Bariatric surgery status
CPT/HCPCS: 36415; 86900; 86901; 80053; 82150; 82550; 82553; 83690; 83735; 84484; 85025; 85610; 85730; 86850; 82272; 99284; 96374; 96375 ×2; 96361 ×3; J2405; J1170; C9113

== ENCOUNTER → 2017-05-29 | Outpatient (CLI) | payer MEDICARE, OTHER ==
--- NOTE | 2017-05-29 11:58 | MR ---
EXAMINATION TYPE: MR lumbar spine wo con DATE OF EXAM: 05/29/2017 11:49 AM COMPARISON: NONE HISTORY: Back pain, rome leg pain Multiplanar, MultiSpin echo imaging of the lumbar spine was performed. L1-L2: Normal disc appearance without desiccation. No herniation, protrusion or disc bulging. No ca nal stenosis is present. Foramina are patent bilaterally. L2-L3: Normal disc appearance without desiccation. No herniation, protrusion or disc bulging. No ca nal stenosis is present. Foramina are patent bilaterally. L3-L4: Mild decreased signal and loss of height compatible with disc desiccation. Mild posterior disc bulge without herniation or protrusion. No evidence for central stenosis. Visualized foramina are pa tent bilaterally. Mild facet joint arthropathy. L4-L5: Mild decreased signal and loss of height compatible with disc desiccation. Mild posterior disc bulge without herniation or protrusion. No evidence for central stenosis. Visualized foramina are pa tent bilaterally. Mild facet joint arthropathy. L5-S1: Normal disc appearance without desiccation. No herniation, protrusion or disc bulging. No ca nal stenosis is present. Foramina are patent bilaterally. Lumbar segments are intact. No paraspinal masses are identified. Conus medullaris has a normal appe arance. IMPRESSION: 1. Mild degenerative disc disease and disc bulging at L3-4 and L4-5 without evidence for herniation p rotrusion or central stenosis.
== END | disposition home or self-care (01) ==
LOC: RADMRIMAIN 10:23
PROVIDERS: ATTEND Anesthesiology Pain Medicine
DX: M51.16 Intervertebral disc disorders with radiculopathy, lumbar region (principal)
CPT/HCPCS: 72148

== ENCOUNTER → 2018-01-31 | Outpatient (CLI) | payer MEDICARE, OTHER ==
--- NOTE | 2018-02-01 15:25 | MM ---
Reason for exam: screening (asymptomatic). Last mammogram was performed 1 year and 6 months ago. History: Patient is postmenopausal. Family history of breast cancer in grandmother. Physical Findings: A clinical breast exam by your physician is recommended on an annual basis and results should be correlated with mammographic findings. MG 3D Screening Mammo W/Cad Bilateral CC and MLO view(s) were taken. Prior study comparison: July 22, 2016, bilateral MG 3d screening mammo w/cad. November 27, 2014, bilateral MG screening mammo w CAD. There are scattered fibroglandular densities. Finding: There are typically benign round calcifications in both breasts. There is no discrete abnormality. ASSESSMENT: Benign, BI-RAD 2 RECOMMENDATION: Routine screening mammogram of both breasts in 1 year.
== END | disposition home or self-care (01) ==
LOC: RADMAMWWP 10:49
PROVIDERS: ATTEND Family Medicine
DX: Z12.31 Encounter for screening mammogram for malignant neoplasm of breast (principal)
CPT/HCPCS: 77063; 77067

== ENCOUNTER → 2018-09-13 | Outpatient (CLI) | payer MEDICARE, OTHER ==
--- NOTE | 2018-09-13 11:03 | MR ---
EXAMINATION TYPE: MR cervical spine wo con DATE OF EXAM: 09/13/2018 COMPARISON: None HISTORY: cervical pain TECHNIQUE: Multiplanar, multisequence images of the cervical spine were acquired. C2-C3: Degenerative disc disease. No disc herniation, canal stenosis, or foraminal encroachment C3-C4: No evidence for degenerative disc disease. No disc bulge/herniation or protrusion. No Canal stenosis. Foramina are patent bilaterally. C4-C5: Degenerative disc disease with focal central disc protrusion. Abuts the anterior margin the sp inal cord. Mild bilateral uncovertebral joint particularly. Neural foramina remain patent C5-C6: Degenerative disc disease. Mild uncovertebral joint hypertrophy but no foraminal encroachment or canal stenosis. Minimal central disc bulging. C6-C7: Degenerative disc disease with broad-based central disc protrusion abutting the anterior heather n the spinal cord resulting in central mild canal stenosis. Mild bilateral foraminal encroachment. C7-T1: No evidence for degenerative disc disease. No disc bulge/herniation or protrusion. No Canal stenosis. Foramina are patent bilaterally. Cervical segments are intact. There is normal alignment. Cervical spinal cord is of normal signal. Craniovertebral junction relationships are within normal limits. IMPRESSION: 1. Multilevel degenerative disc disease with multilevel disc bulging or protrusion as discussed above with most marked findings at C4-5 and C6-C7 with indentation of the thecal sac and disc protrusions abutting the anterior margin of the spinal cord resulting in mild central stenosis.
== END | disposition home or self-care (01) ==
LOC: RADMRIMAIN 09:32
PROVIDERS: ATTEND Orthopaedic Surgery Orthopaedic Surgery of the Spine
DX: M48.02 Spinal stenosis, cervical region (principal); M50.321 Other cervical disc degeneration at C4-C5 level; M50.221 Other cervical disc displacement at C4-C5 level
CPT/HCPCS: 72141

== ENCOUNTER 2019-09-17 11:45 | Emergency (ER) | payer MEDICARE, OTHER ==
[2019-09-17 12:00] VITALS: TEMP 98.5
[2019-09-17] MEDS ORDERED: hydrALAZINE HCL 20 MG/ML 1 ML VIAL IVP STA ×2 (12:50→14:12)
--- NOTE | 2019-09-17 12:55 | ED ---
General Adult HPI - General Chief complaint: Recheck/Abnormal Lab/Rx Stated complaint: High BP Time Seen by Provider: 09/17/19 12:00 Source: patient, RN notes reviewed, old records reviewed Mode of arrival: wheelchair Limitations: no limitations - History of Present Illness Initial comments: This is a 69-year-old female who presents emergency Department presents emergency Department complaining of having elevated blood pressure today. Patient states she's also had a headache since his been elevated. Patient states she didn't take her meds irregular times morning she had eaten. Patient states she called her medical care doctor told to go to the emergency department. Patient denies any numbness weakness per patient denies any nausea vomiting per patient denies any chest pain palpitations difficulty breathing shortness of breath. Patient denies any abdominal pain. Patient denies any other new symptoms at this time. - Related Data Home Medications Medication Instructions Recorded Confirmed Cholecalciferol [Vitamin D3 (25 5,000 unit PO DAILY 05/29/14 01/31/17 Mcg = 1000 Iu)] Diazepam [Valium] 5 mg PO BID 05/29/14 01/31/17 Hydrochlorothiazide 25 mg PO DAILY 05/29/14 01/31/17 Levothyroxine Sodium [Synthroid] 75 mcg PO DAILY 05/29/14 01/31/17 Aspirin 81 mg PO DAILY 11/01/16 01/31/17 amLODIPine BESYLATE [Amlodipine 2.5 mg PO DAILY 11/01/16 01/31/17 Besylate] Biotin 5 mg PO DAILY 01/31/17 01/31/17 Cyanocobalamin (Vitamin B-12) 1,000 mcg PO DAILY 01/31/17 01/31/17 [Vitamin B-12] FLUoxetine HCL [PROzac] 20 mg PO HS 01/31/17 01/31/17 FLUoxetine HCL [PROzac] 60 mg PO QAM 01/31/17 01/31/17 Ibuprofen [Motrin] 600 mg PO AC-TID PRN 01/31/17 01/31/17 Loratadine [Claritin] 10 mg PO DAILY 01/31/17 01/31/17 Pantoprazole Sodium [Protonix] 40 mg PO DAILY 01/31/17 01/31/17 Pravastatin Sodium [Pravachol] 20 mg PO DAILY 01/31/17 01/31/17 Previous Rx's Medication Instructions Recorded Hydrocortisone Suppository 25 mg RECTAL BID #14 supp 01/31/17 [Anusol-Hc] Allergies Allergy/AdvReac Type Severity Reaction Status Date / Time Iodinated Contrast Media Allergy Anaphylaxis Verified 01/31/17 10:42 [Iodinated Contrast Media - IV Dye] sulfamethoxazole Allergy Anaphylaxis Verified 09/17/19 12:01 [From Bactrim] trimethoprim [From Bactrim] Allergy Anaphylaxis Verified 09/17/19 12:01 surgical glue Allergy Rash/Hives Uncoded 09/17/19 12:01 Review of Systems ROS Statement: Those systems with pertinent positive or pertinent negative responses have been documented in the HPI. ROS Other: All systems not noted in ROS Statement are negative. Past Medical History Past Medical History: Asthma, Deep Vein Thrombosis (DVT), Fibromyalgia, GERD/Reflux, GI Bleed, Hyperlipidemia, Hypertension, Pneumonia, Pulmonary Embolus (PE), Rheumatoid Arthritis (RA), Thyroid Disorder Additional Past Medical History / Comment(s): Multiple PEs bilaterally, PUD, "inflammed stomach", hiatal hernia, IBS, colitis, diverticular dx, rectal bleed, bronchitis, migraines, low back pain, spinal stenosis, past vertigo once, migraines, hypothyroid, hayfever, sinus problems History of Any Multi-Drug Resistant Organisms: None Reported Past Surgical History: Bariatric Surgery, Joint Replacement, Orthopedic Surgery, Tonsillectomy Additional Past Surgical History / Comment(s): lap band-then removed, bilateral knee scopes with R side done twice, bilateral total knee replacements, colonosco py/EGD, D&C, cervical fusion Past Anesthesia/Blood Transfusion Reactions: Motion Sickness, Postoperative Nausea & Vomiting (PONV) Past Psychological History: Anxiety, Depression Smoking Status: Former smoker Past Alcohol Use History: Occasional Past Drug Use History: None Reported - Past Family History Father Family Medical History: Cancer Additional Family Medical History / Comment(s): Father is 88yrs old and has bladder cancer and a heart condition. Mother Family Medical History: Myocardial Infarction ([place]) Additional Family Medical History / Comment(s): Mother of a massive [place] at the age of 58yrs. General Exam - General Exam Comments Initial Comments: GENERAL: Patient is well-developed and well-nourished. Patient is nontoxic and well- hydrated and is in mild distress. ENT: Neck is soft and supple. No significant lymphadenopathy is noted. Oropharynx is clear. Moist mucous membranes. Neck has full range of motion without eliciting any pain. EYES: The sclera were anicteric and conjunctiva were pink and moist. Extraocular movements were intact and pupils were equal round and reactive to light. Eyelids were unremarkable. PULMONARY: Unlabored respirations. Good breath sounds bilaterally. No audible rales rhonchi or wheezing was noted. CARDIOVASCULAR: There is a regular rate and rhythm without any murmurs gallops or rubs. ABDOMEN: Soft and nontender with normal bowel sounds. SKIN: Skin is clear with no lesions or rashes and otherwise unremarkable. NEUROLOGIC: Patient is alert and oriented x3. Cranial nerves II through XII are grossly intact. Motor and sensory are also intact. Normal speech, volume and content. Symmetrical smile. MUSCULOSKELETAL: Normal extremities with adequate strength and full range of motion. LYMPHATICS: No significant lymphadenopathy is noted PSYCHIATRIC: Normal psychiatric evaluation. Limitations: no limitations Course Vital Signs 09/17/19 09/17/19 09/17/19 11:56 13:17 13:39 Temperature 98.5 F Pulse Rate 71 Respiratory 18 Rate Blood Pressure 180/115 196/97 178/82 O2 Sat by Pulse 98 Oximetry 09/17/19 14:26 Temperature Pulse Rate 76 Respiratory 16 Rate Blood Pressure 165/95 O2 Sat by Pulse 99 Oximetry Medical Decision Making - Medical Decision Making EKG shows normal sinus rhythm at 65 bpm LA interval 268 QRSs 84 Q-T intervals 462 QTC is 480. Patient's EKG shows no ST segment elevation or depression. CT of the head shows no acute abnormality. I went into the room to reevaluate the patient and her headache was much improved and her blood pressure was significantly reduced. - Lab Data Result diagrams: 09/17/19 13:05 09/17/19 13:05 Lab Results 09/17/19 09/17/19 Range/Units 13:05 13:05 WBC 5.4 (3.8-10.6) k/uL RBC 4.18 (3.80-5.40) m/uL Hgb 10.3 L (11.4-16.0) gm/dL Hct 33.4 L (34.0-46.0) % MCV 80.0 (80.0-100.0) fL MCH 24.6 L (25.0-35.0) pg MCHC 30.7 L (31.0-37.0) g/dL RDW 17.1 H (11.5-15.5) % Plt Count 349 (150-450) k/uL Neutrophils % 56 % Lymphocytes % 30 % Monocytes % 6 % Eosinophils % 3 % Basophils % 1 % Neutrophils # 3.0 (1.3-7.7) k/uL Lymphocytes # 1.6 (1.0-4.8) k/uL Monocytes # 0.3 (0-1.0) k/uL Eosinophils # 0.2 (0-0.7) k/uL Basophils # 0.1 (0-0.2) k/uL Hypochromasia Marked Anisocytosis Slight Microcytosis Slight Sodium 139 (137-145) mmol/L Potassium 4.0 (3.5-5.1) mmol/L Chloride 104 (98-107) mmol/L Carbon Dioxide 30 (22-30) mmol/L Anion Gap 5 mmol/L BUN 24 H (7-17) mg/dL Creatinine 0.71 (0.52-1.04) mg/dL Est GFR (CKD-EPI)AfAm >90 (>60 ml/min/1.73 sqM) Est GFR (CKD-EPI)NonAf 88 (>60 ml/min/1.73 sqM) Glucose 81 (74-99) mg/dL Calcium 9.0 (8.4-10.2) mg/dL Total Bilirubin 0.2 (0.2-1.3) mg/dL AST 23 (14-36) U/L ALT 13 (4-34) U/L Alkaline Phosphatase 88 (38-126) U/L Total Protein 6.9 (6.3-8.2) g/dL Albumin 4.1 (3.5-5.0) g/dL Disposition Clinical Impression: Hypertensive urgency Disposition: HOME SELF-CARE Condition: Good Instructions (If sedation given, give patient instructions): Hypertension (ED) Is patient prescribed a controlled substance at d/c from ED?: No Referrals: Omid Flores MD [Primary Care Provider] - 1-2 days Time of Disposition: 14:35
[2019-09-17 13:46] LABS: ALT 13 U/L (4-34); AST 23 U/L (14-36); African American GFR (CKD) >90 (>60 ml/min/1.73 sqM); Albumin 4.1 g/dL (3.5-5.0); Alkaline Phosphatase 88 U/L (38-126); Anion Gap 5 mmol/L; Blood Urea Nitrogen 24 mg/dL (7-17); Carbon Dioxide 30 mmol/L (22-30); Chloride 104 mmol/L (98-107); Glucose 81 mg/dL (74-99); Non-African American GFR(CKD) 88 (>60 ml/min/1.73 sqM); Sodium 139 mmol/L (137-145); Total Bilirubin 0.2 mg/dL (0.2-1.3); Total Protein 6.9 g/dL (6.3-8.2)
[2019-09-17 13:58] LABS: Anisocytosis Slight; Basophils # (A) 0.1 k/uL (0-0.2); Basophils % (A) 1 %; Eosinophils # (A) 0.2 k/uL (0-0.7); Eosinophils % (A) 3 %; HCT 33.4 % (34.0-46.0); HGB 10.3 gm/dL (11.4-16.0); Hypochromasia Marked; Lymphocytes # (A) 1.6 k/uL (1.0-4.8); Lymphocytes % (A) 30 %; MCH 24.6 pg (25.0-35.0); MCHC 30.7 g/dL (31.0-37.0); Mean Platelet Volume 7.4; Microcytosis Slight; Monocytes # (A) 0.3 k/uL (0-1.0); Monocytes % (A) 6 %; Neutrophils % (A) 56 %; Platelet Count 349 k/uL (150-450); RBC 4.18 m/uL (3.80-5.40); RDW 17.1 % (11.5-15.5); WBC 5.4 k/uL (3.8-10.6)
--- NOTE | 2019-09-17 14:01 | CT ---
EXAMINATION TYPE: CT brain wo con DATE OF EXAM: 09/17/2019 COMPARISON: 11/15/2012 HISTORY: weakness, Right sided headache and HTN CT DLP: 1158.4 mGycm Automated exposure control for dose reduction was used. TECHNIQUE: CT scan of the head is performed without contrast. FINDINGS: There is no acute intracranial hemorrhage, mass effect, or midline shift identified. Few punctate dy strophic calcifications are seen of the basal ganglia. No suspicious extra-axial fluid collection. Th e ventricles and sulci are symmetrically prominent compatible with mild age-related volume loss. The globes are intact and the visualized sinuses are clear. There is atherosclerosis of the intracranial vasculature. IMPRESSION: No acute intracranial hemorrhage, mass effect, or midline shift is seen.
[2019-09-17 14:44] VITALS: BP 155/70; PULSE 86; RESP 15
== END 2019-09-17 14:47 | disposition home or self-care (01) ==
LOC: EC 11:45
DX: I16.0 Hypertensive urgency (principal); K21.9 Gastro-esophageal reflux disease without esophagitis; E78.5 Hyperlipidemia, unspecified; I10 Essential (primary) hypertension; M06.9 Rheumatoid arthritis, unspecified; E03.9 Hypothyroidism, unspecified; F32.9 Major depressive disorder, single episode, unspecified; F41.9 Anxiety disorder, unspecified; Z87.891 Personal history of nicotine dependence; Z88.2 Allergy status to sulfonamides; Z91.041 Radiographic dye allergy status; Z91.048 Other nonmedicinal substance allergy status; Z79.82 Long term (current) use of aspirin; Z79.890 Hormone replacement therapy; Z79.899 Other long term (current) drug therapy; Z86.69 Personal history of other diseases of the nervous system and sense organs; Z96.653 Presence of artificial knee joint, bilateral; Z98.1 Arthrodesis status; Z82.49 Family history of ischemic heart disease and other diseases of the circulatory system
CPT/HCPCS: 36415; 93005; 80053; 85025; 70450; 99284; 96374; 96376; J0360

== ENCOUNTER 2019-09-17 22:04 | Emergency (ER) | payer MEDICARE, OTHER ==
[2019-09-17 22:09] VITALS: TEMP 97.8
[2019-09-17] MEDS ORDERED: METOPROLOL TARTRATE 50 MG TAB PO STA (22:39)
[2019-09-17] MEDS ORDERED: ONDANSETRON ODT 4 MG TAB PO STA (22:39)
[2019-09-17] MEDS ORDERED: LORazepam 1 MG TAB PO STA (22:39)
--- NOTE | 2019-09-17 22:39 | ED ---
Recheck HPI - General Chief Complaint: Recheck/Abnormal Lab/Rx Stated Complaint: Elevated BP Time Seen by Provider: 09/17/19 22:15 Source: patient, RN notes reviewed, old records reviewed Mode of arrival: wheelchair Limitations: no limitations - History of Present Illness Initial Comments: This Is a 61-year-old female DF for evaluation specifically for evaluation of elevated blood pressure. Return visit for elevated blood pressure patient was seen here in the ER earlier today went home to her blood pressure began to have some anxiety regarding elevated blood pressure readings because DF for further treatment. Mild headache which did have a CAT scan earlier which is negative, no other complaints of chest pain shortness breath or abdominal pain MD Complaint: other (Recheck for abnormal blood pressure) -: unknown Returns Today for: other (Recheck for abnormal blood pressure she took at home) Symptoms Since Prior Visit: no new symptoms Context: planned re-check (Patient called primary care who sent to ER) Associated Symptoms: none - Related Data Home Medications Medication Instructions Recorded Confirmed Cholecalciferol [Vitamin D3 (25 5,000 unit PO DAILY 05/29/14 01/31/17 Mcg = 1000 Iu)] Diazepam [Valium] 5 mg PO BID 05/29/14 01/31/17 Hydrochlorothiazide 25 mg PO DAILY 05/29/14 01/31/17 Levothyroxine Sodium [Synthroid] 75 mcg PO DAILY 05/29/14 01/31/17 Aspirin 81 mg PO DAILY 11/01/16 01/31/17 amLODIPine BESYLATE [Amlodipine 2.5 mg PO DAILY 11/01/16 01/31/17 Besylate] Biotin 5 mg PO DAILY 01/31/17 01/31/17 Cyanocobalamin (Vitamin B-12) 1,000 mcg PO DAILY 01/31/17 01/31/17 [Vitamin B-12] FLUoxetine HCL [PROzac] 20 mg PO HS 01/31/17 01/31/17 FLUoxetine HCL [PROzac] 60 mg PO QAM 01/31/17 01/31/17 Ibuprofen [Motrin] 600 mg PO AC-TID PRN 01/31/17 01/31/17 Loratadine [Claritin] 10 mg PO DAILY 01/31/17 01/31/17 Pantoprazole Sodium [Protonix] 40 mg PO DAILY 07/11/17 07/11/17 Pravastatin Sodium [Pravachol] 20 mg PO DAILY 01/31/17 01/31/17 Previous Rx's Medication Instructions Recorded Hydrocortisone Suppository 25 mg RECTAL BID #14 supp 01/31/17 [Anusol-Hc] Lisinopril [Prinivil] 10 mg PO DAILY #30 tab 09/17/19 Allergies Allergy/AdvReac Type Severity Reaction Status Date / Time Iodinated Contrast Media Allergy Anaphylaxis Verified 09/17/19 22:09 [Iodinated Contrast Media - IV Dye] sulfamethoxazole Allergy Anaphylaxis Verified 09/17/19 22:09 [From Bactrim] trimethoprim [From Bactrim] Allergy Anaphylaxis Verified 09/17/19 22:09 surgical glue Allergy Rash/Hives Uncoded 09/17/19 22:09 Review of Systems ROS Statement: Those systems with pertinent positive or pertinent negative responses have been documented in the HPI. ROS Other: All systems not noted in ROS Statement are negative. Past Medical History Past Medical History: Asthma, Deep Vein Thrombosis (DVT), Fibromyalgia, GERD/Reflux, GI Bleed, Hyperlipidemia, Hypertension, Pneumonia, Pulmonary Embolus (PE), Rheumatoid Arthritis (RA), Thyroid Disorder Additional Past Medical History / Comment(s): Multiple PEs bilaterally, PUD, "inflammed stomach", hiatal hernia, IBS, colitis, diverticular dx, rectal bleed, bronchitis, migraines, low back pain, spinal stenosis, past vertigo once, migraines, hypothyroid, hayfever, sinus problems History of Any Multi-Drug Resistant Organisms: None Reported Past Surgical History: Bariatric Surgery, Joint Replacement, Orthopedic Surgery, Tonsillectomy Additional Past Surgical History / Comment(s): lap band-then removed, bilateral knee scopes with R side done twice, bilateral total knee replacements, colonoscopy/EGD, D&C, cervical fusion Past Anesthesia/Blood Transfusion Reactions: Motion Sickness, Postoperative Nausea & Vomiting (PONV) Past Psychological History: Anxiety, Depression Smoking Status: Former smoker Past Alcohol Use History: Occasional Past Drug Use History: None Reported - Past Family History Father Family Medical History: Cancer Additional Family Medical History / Comment(s): Father is 88yrs old and has bladder cancer and a heart condition. Mother Family Medical History: Myocardial Infarction ([place]) Additional Family Medical History / Comment(s): Mother of a massive [place] at the age of 58yrs. General Exam Limitations: no limitations General appearance: alert, in no apparent distress Head exam: Present: atraumatic, normocephalic, normal inspection Eye exam: Present: normal appearance, PERRL, EOMI. Absent: scleral icterus, conjunctival injection, periorbital swelling ENT exam: Present: normal exam, mucous membranes moist Neck exam: Present: normal inspection. Absent: tenderness, meningismus, lymphadenopathy Respiratory exam: Present: normal lung sounds bilaterally. Absent: respiratory distress, wheezes, rales, rhonchi, stridor Cardiovascular Exam: Present: regular rate, normal rhythm, normal heart sounds. Absent: systolic murmur, diastolic murmur, rubs, gallop, clicks GI/Abdominal exam: Present: soft, normal bowel sounds. Absent: distended, te nderness, guarding, rebound, rigid Extremities exam: Present: normal inspection, full ROM, normal capillary refill. Absent: tenderness, pedal edema, joint swelling, calf tenderness Back exam: Present: normal inspection Neurological exam: Present: alert, oriented X3, CN II-XII intact Psychiatric exam: Present: normal affect, normal mood Skin exam: Present: warm, dry, intact, normal color. Absent: rash Course Vital Signs 09/17/19 09/17/19 09/18/19 22:06 23:37 00:05 Temperature 97.8 F Pulse Rate 92 77 60 Respiratory 20 18 18 Rate Blood Pressure 181/83 160/90 157/85 O2 Sat by Pulse 100 98 97 Oximetry - Reevaluation(s) Reevaluation #1: Medical records reviewed Patient did have elevated blood pressure here in the ER with CT was negative CT brain Spoke with patient updated and results Symptoms improved here in the ER with medication Patient feeling better 09/19/19 18:45 Medical Decision Making - Medical Decision Making 69 female to the ER for evaluation of elevated blood pressure. Symptoms improved here in the ER patient feels without complaint currently can be discharged home Disposition Clinical Impression: Hypertensive urgency Disposition: HOME SELF-CARE Condition: Good Instructions (If sedation given, give patient instructions): Hypertension (ED) Prescriptions: Lisinopril [Prinivil] 10 mg PO DAILY #30 tab Is patient prescribed a controlled substance at d/c from ED?: No Referrals: Omid Flores MD [Primary Care Provider] - 1-2 days
[2019-09-17] MEDS ORDERED: ACETAMINOPHEN TAB 500 MG TAB PO STA (22:42)
[2019-09-17] MEDS ORDERED: IBUPROFEN 800 MG TAB PO STA (22:42)
[2019-09-17] MEDS ORDERED: cloNIDine 0.3 MG/24HR PATCH TRANSDERM SCH (22:45)
[2019-09-17 23:42] VITALS: RESP 18
[2019-09-18 00:06] VITALS: BP 157/85; PULSE 60
== END 2019-09-18 00:14 | disposition home or self-care (01) ==
LOC: EC 22:04
DX: I16.0 Hypertensive urgency (principal); F41.9 Anxiety disorder, unspecified; F32.9 Major depressive disorder, single episode, unspecified; E03.9 Hypothyroidism, unspecified; E78.5 Hyperlipidemia, unspecified; I10 Essential (primary) hypertension; K21.9 Gastro-esophageal reflux disease without esophagitis; K58.9 Irritable bowel syndrome, unspecified; M06.9 Rheumatoid arthritis, unspecified; M79.7 Fibromyalgia; Z79.82 Long term (current) use of aspirin; Z79.890 Hormone replacement therapy; Z79.899 Other long term (current) drug therapy; Z91.041 Radiographic dye allergy status; Z88.2 Allergy status to sulfonamides; Z88.1 Allergy status to other antibiotic agents; Z91.09 Other allergy status, other than to drugs and biological substances; Z86.711 Personal history of pulmonary embolism; Z86.718 Personal history of other venous thrombosis and embolism; Z87.11 Personal history of peptic ulcer disease; Z96.653 Presence of artificial knee joint, bilateral; Z87.891 Personal history of nicotine dependence; Z82.49 Family history of ischemic heart disease and other diseases of the circulatory system
CPT/HCPCS: 99284 ×3; 96376; 96374; 36415; 93005; 80053; 85025; 70450; J0360

== ENCOUNTER → 2022-05-31 | Outpatient (CLI) | payer MEDICARE, OTHER ==
--- NOTE | 2022-06-01 08:04 | MM ---
Reason for Exam: Screening (asymptomatic). Last mammogram was performed 4 year(s) and 4 month(s) ago. Patient History: Menarche at age 12. First Full-Term at age 23. Postmenopausal. Maternal grandmother had breast cancer. Risk Values: Jannie 5 year model risk: 1.7%. NCI Lifetime model risk: 5.0%. Prior Study Comparison: 11/27/2014 Bilateral Screening Mammogram, [facility]. 07/22/2016 Bilateral Screening Mammogram, [facility]. 01/31/2018 Bilateral Screening Mammogram, [facility]. Tissue Density: There are scattered fibroglandular densities. Findings: Analyzed By CAD. There are a few scattered small benign-appearing round calcifications throughout the bilateral breasts. There is no suspicious group of microcalcifications or new suspicious mass in either breast. Overall Assessment: Benign, BI-RAD 2 Management: Screening Mammogram of both breasts in 1 year. A clinical breast exam by your physician is recommended on an annual basis and results should be correlated with mammographic findings. Electronically signed and approved by: Vikas Fernandes M.D.
== END | disposition home or self-care (01) ==
LOC: RADMAMWWP 09:16
PROVIDERS: ATTEND Family Medicine
DX: Z12.31 Encounter for screening mammogram for malignant neoplasm of breast (principal); Z78.0 Asymptomatic menopausal state; Z80.3 Family history of malignant neoplasm of breast
CPT/HCPCS: 77063; 77067

== ENCOUNTER 2023-08-11 11:28 | Day surgery (SDC) | payer MEDICARE, OTHER ==
[2023-08-07 09:38] VITALS: BMI 30.9
--- NOTE | 2023-08-11 07:34 | P.GSHP ---
History of Present Illness H&P Date: 08/11/23 Chief Complaint: Right arm lipoma 72-year-old female here for excision lipoma. Increasing in size over the years. Tender in the right upper posterior arm. More aggravating when she is active such as swimming or walking. Ultrasound shows a 3 cm lipomatous mass. 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 History of Any Multi-Drug Resistant Organisms: None Reported Past Surgical History: Bariatric Surgery, Joint Replacement, Orthopedic Surgery, Tonsillectomy Additional Past Surgical History / Comment(s): lap band-then removed, bilateral knee scopes with R side done twice, bilateral total knee replacements lt side x2,colonoscopy/EGD, D&C, cervical fusion, disc replacement to lower back with rods placed. Past Anesthesia/Blood Transfusion Reactions: Motion Sickness, Postoperative Nausea & Vomiting (PONV) Additional Past Anesthesia/Blood Transfusion Reaction / Comment(s): Has had blood transfusion with no reaction. Smoking Status: Former smoker - Past Family History Father Family Medical History: Cancer Additional Family Medical History / Comment(s): Father is 88yrs old and has bladder cancer and a heart condition. Mother Family Medical History: Myocardial Infarction ([place]) Additional Family Medical History / Comment(s): Mother of a massive [place] at the age of 58yrs. Medications and Allergies Home Medications Medication Instructions Recorded Confirmed Type Cholecalciferol [Vitamin D3 (25 5,000 unit PO HS 05/29/14 08/07/23 History Mcg = 1000 Iu)] Biotin 5 mg PO DAILY 01/31/17 08/07/23 History FLUoxetine HCL [PROzac] 20 mg PO HS 01/31/17 08/07/23 History FLUoxetine HCL [PROzac] 20 mg PO QAM 01/31/17 08/07/23 History Ibuprofen [Motrin] 600 mg PO AC-TID PRN 01/31/17 08/07/23 History Loratadine [Claritin] 10 mg PO QAM 01/31/17 08/07/23 History Chlorthalidone 25 mg PO QAM 08/07/23 08/07/23 History Gabapentin [Neurontin] 100 mg PO TID 08/07/23 08/07/23 History Losartan Potassium 50 mg PO QAM 08/07/23 08/07/23 History Nature Made Super B Complex 1 tab PO QAM 08/07/23 08/07/23 History clonazePAM [Clonazepam] 0.5 mg PO BID 08/07/23 08/07/23 History diphenhydrAMINE HCL [Benadryl] 25 mg PO HS 08/07/23 08/07/23 History Allergies Allergy/AdvReac Type Severity Reaction Status Date / Time Iodinated Contrast Media Allergy Anaphylaxis Verified 08/07/23 09:12 [Iodinated Contrast Media - IV Dye] sulfamethoxazole Allergy Anaphylaxis Verified 08/07/23 09:12 [From Bactrim] trimethoprim [From Bactrim] Allergy Anaphylaxis Verified 08/07/23 09:12 surgical glue Allergy Rash/Hives, Uncoded 08/07/23 09:12 cellulitis Surgical - Exam Physical exam: General: Well-developed, well-nourished HEENT: Normocephalic, sclerae nonicteric Abdomen: Nontender, nondistended Extremities: No edema, 3.5 x 2.5 cm tender mass right posterior upper arm Neuro: Alert and oriented Assessment and Plan (1) Lipoma Narrative/Plan: 72-year-old female with lipomatous mass right upper arm. We'll proceed with surgical excision. Risks of bleeding, infection, scarring, recurrence reviewed. She understands and wishes to proceed. Status: Acute Code(s): D17.9 - BENIGN LIPOMATOUS NEOPLASM, UNSPECIFIED SNOMED Code(s): 43998864
[~2023-08-11 11:28] MED LIST: ACETAMINOPHEN TAB 500 MG TAB PO PRN; DEXAMETHASONE SOD PHOSPHATE 4 MG/ML 1 ML VIAL IV ONE; HEPARIN SODIUM,PORCINE 5,000 UNIT/ML 1 ML VIAL SQ PRN; HYDROmorphone 0.5 MG/0.5 ML SYRINGE IVP PRN; LACTATED RINGERS 1,000 ML IV SCH; LIDOCAINE 1% (10MG/ML) FOR IV START INTRADERMA PRN; ONDANSETRON 4 MG/2 ML VIAL IVP ONE; Pre Op ABX Message 1 EACH MISC MISCELLANE ONE; droPERidol 5 MG/2 ML VIAL IVP ONE
[2023-08-11] MEDS ORDERED: BUPIVACAIN-EPI 0.25%-1:200,000 30 ML VIAL SQ ONE ×2 (12:31→13:17)
[2023-08-11] MEDS ORDERED: BACITRACIN OINT 1 EACH PACKET TOPICAL ONE (12:32)
[2023-08-11] MEDS ORDERED: ePHEDrine 50 MG/ML 1 ML VIAL ONE (12:34)
[2023-08-11] MEDS ORDERED: fentaNYL (PF) 50 MCG/ML 2 ML AMP ONE (12:34)
[2023-08-11] MEDS ORDERED: MIDAZOLAM 2 MG/2 ML VIAL ONE (12:34)
[2023-08-11] MEDS ORDERED: PROPOFOL 10 MG/ML 20 ML VIAL IV ONE (12:34)
[2023-08-11] MEDS ORDERED: LIDOCAINE 1% INJ 10MG/ML (20 ML MDV) ONE (12:34)
[2023-08-11] MEDS ORDERED: LACTATED RINGERS 1,000 ML IV ONE (12:35)
[2023-08-11] MEDS ORDERED: ceFAZolin 1,000 MG VIAL IVPB ONE (12:39)
[2023-08-11] MEDS ORDERED: NALOXONE 0.4 MG/ML 1 ML VIAL IV PRN (13:25)
[2023-08-11] MEDS ORDERED: ACETAMINOPHEN TAB 325 MG TAB PO PRN (13:25)
--- NOTE | 2023-08-11 13:34 | P.OP ---
Date of Procedure: 08/11/23 Procedure(s) Performed: PREOPERATIVE DIAGNOSIS: Right arm lipoma POSTOPERATIVE DIAGNOSIS: Same PROCEDURE: Excision right arm lipoma with intermediate closure SURGEON: Ludwig EBL: Micha Singh ANESTHESIA: Gen. COMPLICATIONS: None OPERATIVE PROCEDURE: Patient place in the left decubitus position. Right posterior upper arm prepped and draped sterilely. A longitudinal incision made overlying the palpable mass. The subcutaneous tissues were divided using electrocautery. The patient had a prominent lipomatous mass that was bilobed. This measured 3.5 x 3 cm. This was excised. No additional lipomatous mass was seen. Subcutaneous tissues closed using interrupted 3-0 Vicryl sutures. Skin was then closed using running 4-0 nylon stitch. Sterile dressings applied. DISPOSITION: Stable to recovery room
[2023-08-11 13:45] VITALS: RESP 16; TEMP 97.2
[2023-08-11 14:58] VITALS: BP 132/82; PULSE 89
== END 2023-08-11 14:35 | disposition home or self-care (01) ==
LOC: OR 11:28
PROVIDERS: ATTEND Surgery
DX: D17.21 Benign lipomatous neoplasm of skin and subcutaneous tissue of right arm (principal); E03.9 Hypothyroidism, unspecified; E78.5 Hyperlipidemia, unspecified; I10 Essential (primary) hypertension; J45.909 Unspecified asthma, uncomplicated; K21.9 Gastro-esophageal reflux disease without esophagitis; M06.9 Rheumatoid arthritis, unspecified; M79.7 Fibromyalgia; Z86.711 Personal history of pulmonary embolism; Z86.718 Personal history of other venous thrombosis and embolism; Z87.891 Personal history of nicotine dependence; Z88.1 Allergy status to other antibiotic agents; Z88.2 Allergy status to sulfonamides; Z91.041 Radiographic dye allergy status
CPT/HCPCS: 24071; J2250; J1644; J1100; J2405; J0690; J2001; J3010; J2704; 88304

== ENCOUNTER 2025-01-03 08:20 | Inpatient (IN) | payer MEDICARE, OTHER ==
[2025-01-03 09:29] LABS: Basophils # (A) 0.08 10*3/uL (0.00-0.10); Basophils % (A) 1.4 %; Eosinophils # (A) 0.07 10*3/uL (0.04-0.35); Eosinophils % (A) 1.2 %; HGB 12.6 g/dL (12.0-15.0); Lymphocytes # (A) 1.21 10*3/uL (0.90-5.00); Lymphocytes % (A) 20.5 %; MCH 27.3 pg (27.0-32.0); MCHC 32.3 g/dL (32.0-37.0); MCV 84.6 fL (80.0-97.0); Mean Platelet Volume 9.2 fL (9.5-12.2); Monocytes # (A) 0.53 10*3/uL (0.20-1.00); Neutrophils % (A) 67.6 %; Platelet Count 309 10*3/uL (140-440); RBC 4.61 10*6/uL (4.10-5.20); RDW 14.4 % (11.5-14.5); WBC 5.91 10*3/uL (4.50-10.00)
[2025-01-03 09:35] LABS: INR 0.9 (<1.2); Partial Thromboplastin Time 23.1 sec (22.0-30.0); Prothrombin Time 10.5 sec (10.0-12.5)
[2025-01-03 09:36] LABS: ALT 18 U/L (4-34); AST 25 U/L (14-36); African American GFR (CKD) 89 (>60 ml/min/1.73 sqM); Albumin 4.7 g/dL (3.5-5.0); Alkaline Phosphatase 77 U/L (38-126); Anion Gap 10 mmol/L; Blood Urea Nitrogen 18 mg/dL (7-17); Calcium 9.5 mg/dL (8.4-10.2); Carbon Dioxide 27 mmol/L (22-30); Chloride 103 mmol/L (98-107); Glucose 110 mg/dL (74-99); Lipase 88 U/L (23-300); Magnesium 1.8 mg/dL (1.6-2.3); Non-African American GFR(CKD) 77 (>60 ml/min/1.73 sqM); Potassium 3.4 mmol/L (3.5-5.1); Sodium 140 mmol/L (137-145); Total Bilirubin 0.6 mg/dL (0.2-1.3); Total Protein 7.5 g/dL (6.3-8.2)
[2025-01-03] MEDS: PANTOPRAZOLE 40 MG/10 ML VIAL IVP STA (12:11)
[2025-01-03] MEDS: ONDANSETRON 4 MG/2 ML VIAL IVP STA (12:13)
[2025-01-03] MEDS: MORPHINE SULFATE 4 MG/ML SYRINGE IVP STA ×2 (12:14→14:29)
[2025-01-03] MEDS: SODIUM CHLORIDE 0.9% 1,000 ML IV ONE (12:15)
[2025-01-03] MEDS: diphenhydrAMINE 50 MG/ML 1 ML VIAL IVP STA (12:18)
[2025-01-03] MEDS: FAMOTIDINE 20 MG/2 ML VIAL IV STA (12:20)
[2025-01-03] MEDS: methylPREDNISolone SOD SUCCI 125 MG/2 ML VIAL IV STA (12:22)
--- NOTE | 2025-01-03 13:37 | CT ---
CTA thorax, abdomen and pelvis. HISTORY: Aortic aneurysm. CT abdomen and pelvis dated 03/22/2011. TECHNIQUE: Multiple axial images were obtained through the chest, abdomen and pelvis before and after IV contrast. The exam was performed per department CT protocol. Its images and 3-D postprocessing wa s performed. FINDINGS: Vascular findings: The ascending thoracic aorta is dilated to 4 cm consistent with mild aneurysm. The abdominal aorta an d iliac vessels are normal in caliber without evidence of aneurysm. Celiac, SMA and MIKE are all patent without significant stenosis. CT thorax nonvascular: The lungs are clear. There is no pleural effusion or pneumothorax. There is no mediastinal, hilar or axillary adenopathy. CT abdomen and pelvis nonvascular: Gallbladder is normal and there is no biliary ductal dilatation. There are 2 hypodense lesions within the liver consistent with cysts. There is no mass of the pancreas, spleen or adrenal glands. There is no solid renal mass or cyst. There is no retroperitoneal adenopathy or hemorrhage. Bowel loops are normal in caliber with no dilatation or obstruction. There is mild to moderate divert iculosis of the sigmoid colon without CT evidence of diverticulitis. There is no pelvic mass or adenopathy. There is no free intraperitoneal air or fluid. There are postsurgical changes of fusion in the lower lumbar spine but no focal osseous lesions. IMPRESSION: 1. 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 2. No abdominal aortic aneurysm. 3. Patent mesenteric arteries without stenosis or for mild to moderate diverticulosis without CT evid ence of acute diverticulitis. [facility], , 01/03/2025 1:35 PM
[2025-01-03] MEDS ORDERED: HEPARIN SODIUM 1,000 UN/ML (10ML VL) IV PRN (13:53)
[2025-01-03] MEDS ORDERED: NALOXONE 0.4 MG/ML 1 ML VIAL IV PRN (14:02)
[2025-01-03] MEDS ORDERED: ONDANSETRON 4 MG/2 ML VIAL IVP PRN (14:02)
[2025-01-03] MEDS: ASPIRIN 81 MG PO STA (14:26)
[2025-01-03] MEDS: HEPARIN SODIUM 1,000 UN/ML (10ML VL) IV ONE (14:38)
[2025-01-03] MEDS: HEPARIN SOD,PORK IN 0.45% NACL 25,000 UNIT in 0.45% NACL 1 250ML.BAG IV SCH (14:39)
--- NOTE | 2025-01-03 14:44 | ED ---
General Adult HPI - General Chief complaint: GI Bleed Stated complaint: Left flank pain, blood in stool Time Seen by Provider: 01/03/25 11:45 Source: patient, RN notes reviewed, old records reviewed Mode of arrival: ambulatory Limitations: no limitations - History of Present Illness Initial comments: Patient is a 74-year-old female presents emergency department for multiple complaints. Complaining of possible GI bleed with dark stools this morning in her bowel movement. Is not on blood thinners. Does have a history of prior GI bleed. Patient is also complaining of 2 weeks of more or less constant left- sided pain. States it is located in the left mid flank and radiates up through the left chest abdominal in the axillary region. Patient also has occasional radiation down the left lower quadrant. Denies any diarrhea. Denies cons tipation. Denies any nausea or vomiting. Denies any diaphoresis. States symptoms are somewhat worse with exertion but currently has been more or less constant for a few days. Unknown what causes it. Denies any obvious injury. Presents for further evaluation at this time.Workup started when the patient was in triage and I evaluated patient while she was placed in room. - Related Data Home Medications Medication Instructions Recorded Confirmed Cholecalciferol [Vitamin D3 (25 5,000 unit PO HS 05/29/14 08/11/23 Mcg = 1000 Iu)] Biotin 5 mg PO DAILY 01/31/17 08/11/23 FLUoxetine HCL [PROzac] 20 mg PO HS 01/31/17 08/11/23 FLUoxetine HCL [PROzac] 20 mg PO QAM 01/31/17 08/11/23 Ibuprofen [Motrin] 600 mg PO AC-TID PRN 01/31/17 08/11/23 Loratadine [Claritin] 10 mg PO QAM 01/31/17 08/11/23 Chlorthalidone 25 mg PO QAM 08/07/23 08/11/23 Gabapentin [Neurontin] 100 mg PO TID 08/07/23 08/11/23 Losartan Potassium 50 mg PO QAM 08/07/23 08/11/23 Nature Made Super B Complex 1 tab PO QAM 08/07/23 08/11/23 clonazePAM [Clonazepam] 0.5 mg PO BID 08/07/23 08/11/23 diphenhydrAMINE HCL [Benadryl] 25 mg PO HS 08/07/23 08/11/23 Linaclotide [Linzess] 290 mcg PO DAILY 08/11/23 08/11/23 Allergies Allergy/AdvReac Type Severity Reaction Status Date / Time Iodinated Contrast Media Allergy Anaphylaxis Verified 01/03/25 08:24 [Iodinated Contrast Media - IV Dye] sulfamethoxazole Allergy Anaphylaxis Verified 01/03/25 08:24 [From Bactrim] trimethoprim [From Bactrim] Allergy Anaphylaxis Verified 01/03/25 08:24 surgical glue Allergy Rash/Hives, Uncoded 01/03/25 08:24 cellulitis Review of Systems ROS Statement: Those systems with pertinent positive or pertinent negative responses have been documented in the HPI. Review of Systems: CONST: Denies fever EYES: Denies blurry vision ENT: Denies nasal congestion C/V: Denies Chest pain RESP: Denies shortness of breath GI: Denies abdominal pain : Denies dysuria SKIN: Denies rash. MSK: Denies joint pain. NEURO: Denies headache ROS Other: All systems not noted in ROS Statement are negative. Past Medical History Past Medical History: Asthma, Deep Vein Thrombosis (DVT), Fibromyalgia, GE RD/Reflux, GI Bleed, Hyperlipidemia, Hypertension, Pneumonia, Pulmonary Embolus (PE), Rheumatoid Arthritis (RA), Thyroid Disorder Additional Past Medical History / Comment(s): Hx of multiple PEs bilaterally, PUD, "inflammed stomach", hiatal hernia, IBS, colitis, diverticular dx, rectal bleed, bronchitis, migraines, low back pain, spinal stenosis, past vertigo once, migraines, hypothyroid, hayfever, sinus problems, neuropathy to bilat lower legs and bilat arms from the elbows down, "leaky heart valve" "anurysm on one of my valves""They're just watching it", environmental allergies. History of Any Multi-Drug Resistant Organisms: None Reported Past Surgical History: Bariatric Surgery, Joint Replacement, Orthopedic Surgery, Tonsillectomy Additional Past Surgical History / Comment(s): lap band-then removed, bilateral knee scopes with R side done twice, bilateral total knee replacements lt side x2,colonoscopy/EGD, D&C, cervical fusion, disc replacement to lower back with rods placed. Past Anesthesia/Blood Transfusion Reactions: Motion Sickness, Postoperative Nausea & Vomiting (PONV) Additional Past Anesthesia/Blood Transfusion Reaction / Comment(s): Has had blood transfusion with no reaction. Past Psychological History: Anxiety, Depression Smoking Status: Former smoker Past Alcohol Use History: None Reported Past Drug Use History: Marijuana - Past Family History Father Family Medical History: Cancer Additional Family Medical History / Comment(s): Father is 88yrs old and has bladder cancer and a heart condition. Mother Family Medical History: Myocardial Infarction (ID) Additional Family Medical History / Comment(s): Mother of a massive ID at the age of 58yrs. General Exam - General Exam Comments Initial Comments: General: Appears anxious HEAD: Normal with no signs of head trauma. EYES: EOMI ENT: Hearing grossly intact, normal oropharynx. RESPIRATORY: Clear breath sounds bilaterally. No wheezes, rales, or rhonchi. C/V: Regular rate and rhythm. S1 and S2 auscultated, no edema, peripheral pulses 2+ and intact throughout ABD: Abd is soft, nontender, nondistended. Rectal exam performed in the presence of female staff member. Light brown stool per rectum. Hemorrhoids that are uncomplicated at present. No evidence of GI bleed grossly. Occult blood sent. EXT: Normal range of motion, no obvious deformity. Reproducible chest pain over the left inferior ribs in the axillary space. No obvious deformities. SKIN: No rashes or lesions observed on exposed skin. NEURO: Alert and oriented x 4. Limitations: no limitations Course Vital Signs 01/03/25 01/03/25 01/03/25 08:21 11:40 11:46 Temperature 97.9 F Pulse Rate 122 H 89 Pulse Rate [ 78 Music Promoter ] Respiratory 24 19 Rate Blood Pressure 183/93 176/122 O2 Sat by Pulse 99 100 Oximetry 01/03/25 13:29 Temperature Pulse Rate 62 Pulse Rate [ Music Promoter ] Respiratory 15 Rate Blood Pressure 126/78 O2 Sat by Pulse 100 Oximetry Medical Decision Making - Medical Decision Making Was pt. sent in by a medical professional or institution (, PA, TANK OFFICER, urgent care, hospital, or custodial...) When possible be specific @ -No Did you speak to anyone other than the patient for history (EMS, parent, family, police, friend...)? What history was obtained from this source @ -No Did you review nursing and triage notes (agree or disagree)? Why? @ -I reviewed and agree with nursing and triage notes Were old charts reviewed (outside hosp., previous admission, EMS record, old EKG, old radiological studies, urgent care reports/EKG's, custodial records)? Report findings @ -Today's EKG is compared with EKG from August 2019 which revealed no obvious significant change. Differential Diagnosis (chest pain, altered mental status, abdominal pain women, abdominal pain men, vaginal bleeding, weakness, fever, dyspnea, syncope, headache, dizziness, GI bleed, back pain, seizure, CVA, palpatations, mental health, musculoskeletal)? @ -Differential Abdominal Pain Men: Appendicitis, cholecystitis, diverticulosis, ischemic bowel, pancreatitis, hepatitis, UTI, gastroenteritis, AAA, incarcerated hernia, bowel obstruction, constipation, inflammatory bowel, hepatitis, peptic ulcer disease, splenic infarction, perforated viscus, testicular torsion, this is not meant to be an all-inclusive list EKG interpreted by me (3pts min.). @ -As above X-rays interpreted by me (1pt min.). @ -None done CT interpreted by me (1pt min.). @ -CT angiogram chest abdomen pelvis reveals a known uncomplicated 4 cm ascen ding thoracic aortic aneurysm. This is known to the patient. No other obvious acute process seen. No evidence of GI bleed. U/S interpreted by me (1pt. min.). @ -None done What testing was considered but not performed or refused? (CT, X-rays, U/S, labs)? Why? @ -None What meds were considered but not given or refused? Why? @ -None Did you discuss the management of the patient with other professionals (professionals i.e. , PA, TANK OFFICER, lab, RT, psych nurse, social insurance adviser, sandwich peddler, teacher, sheriffs officer, medical case manager)? Give summary @ -Discussed with Dr. Marinelli who accepted the admission. Was in agreement with initiating heparin therapy and trending hemoglobins in addition to monitoring chloé varela's coagulation. Was smoking cessation discussed for >3mins.? @ -No Was critical care preformed (if so, how long)? @ -Yes, 31 minutes Were there social determinants of health that impacted care today? How? (Homelessness, low income, unemployed, alcoholism, drug addiction, transportation, low edu. Level, literacy, decrease access to med. care, long-term, rehab)? @ -No Was there de-escalation of care discussed even if they declined (Discuss DNR or withdrawal of care, Hospice)? DNR status @ -No What co-morbidities impacted this encounter? (DM, HTN, Smoking, COPD, CAD, Cancer, CVA, ARF, Chemo, Hep., AIDS, mental health diagnosis, sleep apnea, morbid obesity)? @ -Aortic aneurysm Was patient admitted / discharged? Hospital course, mention meds given and route, prescriptions, significant lab abnormalities, going to OR and other pertinent info. @ -Patient presents emergency department complaining of multiple complaints. Possible GI bleed not on thinners, some atypical left-sided chest wall pain with abdominal discomfort. Also appears to be having anxiety issues versus panic attack. Workup started in triage. Patient's labs remarkable for normal hemoglobin. Mild hypokalemia 3.4. Occult blood sample sent by myself which was negative. Rectal exam completed by myself negative for any obvious acute process. No evidence of gross bleeding. Light brown stool present. I did add on a troponin we will obtain CT imaging. Patient will receive IV Protonix, Zofran, morphine, as well as premeds for contrast dye allergy. She was in agreement this plan. On reevaluation, patient's chest pain is nearly resolved. She is much more relaxed with stable vital signs. CT imaging returned negative for any obvious acute process. Known ascending aortic aneurysm present that is uncomplicated. Patient's troponin did return positive at 0.15. I did update the patient. I discussed risks and benefits of initiating heparin and she was in agreement with initiating heparin after I also discussed with admitting provider Dr. Marinelli who also wants that initiated. This is for her NSTEMI. She was given 324 mg of aspirin. Will continue to monitor for any worsening signs of bleeding or pastrana ges in her hemoglobin. She was in agreement this plan. On today's exam, no evidence of dark tarry stools. No evidence of anemia. No evidence of any GI bleeding. Patient was in agreement this plan. Patient admitted in stable condition. Undiagnosed new problem with uncertain prognosis? @ -No Drug Therapy requiring intensive monitoring for toxicity (Heparin, Nitro, Insulin, Cardizem)? @ -Heparin Were any procedures done? @ -No Diagnosis/symptom? @ -Abdominal pain, NSTEMI Acute, or Chronic, or Acute on Chronic? @ -Acute Uncomplicated (without systemic symptoms) or Complicated (systemic symptoms)? @ -Complicated Side effects of treatment? @ -No Exacerbation, Progression, or Severe Exacerbation? @ -No Poses a threat to life or bodily function? How? (Chest pain, [place], ID, pneumonia, PE, COPD, DKA, ARF, appy, cholecystitis, CVA, Diverticulitis, Homicidal, Suicidal, threat to staff... and all critical care pts) @ -Potentially, yes - Lab Data Result diagrams: 01/03/25 09:16 01/03/25 09:16 Lab Results 01/03/25 01/03/25 01/03/25 Range/Units 09:16 09:16 09:16 WBC 5.91 (4.50-10.00) 10*3/uL RBC 4.61 (4.10-5.20) 10*6/uL Hgb 12.6 (12.0-15.0) g/dL Hct 39.0 (37.2-46.3) % MCV 84.6 (80.0-97.0) fL MCH 27.3 (27.0-32.0) pg MCHC 32.3 (32.0-37.0) g/dL Plt Count 309 (140-440) 10*3/uL MPV 9.2 L (9.5-12.2) fL Immature Gran % (Auto) 0.3 % Neutrophils % 67.6 % Lymphocytes % 20.5 % Monocytes % 9.0 % Eosinophils % 1.2 % Basophils % 1.4 % Immature Gran # 0.02 (0.00-0.04) 10*3/uL Neutrophils # 4.00 (1.80-7.70) 10*3/uL Lymphocytes # 1.21 (0.90-5.00) 10*3/uL Monocytes # 0.53 (0.20-1.00) 10*3/uL Eosinophils # 0.07 (0.04-0.35) 10*3/uL Basophils # 0.08 (0.00-0.10) 10*3/uL PT 10.5 (10.0-12.5) sec INR 0.9 (<1.2) APTT 23.1 (22.0-30.0) sec Sodium 140 (137-145) mmol/L Potassium 3.4 L (3.5-5.1) mmol/L Chloride 103 (98-107) mmol/L Carbon Dioxide 27 (22-30) mmol/L Anion Gap 10 mmol/L BUN 18 H (7-17) mg/dL Creatinine 0.77 (0.52-1.04) mg/dL Est GFR (CKD-EPI)AfAm 89 (>60 ml/min/1.73 sqM) Est GFR (CKD-EPI)NonAf 77 (>60 ml/min/1.73 sqM) Glucose 110 H (74-99) mg/dL Plasma Lactic Acid Julio (0.7-2.0) mmol/L Calcium 9.5 (8.4-10.2) mg/dL Magnesium 1.8 (1.6-2.3) mg/dL Total Bilirubin 0.6 (0.2-1.3) mg/dL AST 25 (14-36) U/L ALT 18 (4-34) U/L Alkaline Phosphatase 77 (38-126) U/L Troponin I (0.000-0.034) ng/mL Total Protein 7.5 (6.3-8.2) g/dL Albumin 4.7 (3.5-5.0) g/dL Lipase 88 (23-300) U/L Stool Occult Blood (Negative) Blood Type Blood Type Recheck Bld Type Recheck Status Antibody Screen Spec Expiration Date 01/03/25 01/03/25 01/03/25 Range/Units 09:16 09:16 11:37 WBC (4.50-10.00) 10*3/uL RBC (4.10-5.20) 10*6/uL Hgb (12.0-15.0) g/dL Hct (37.2-46.3) % MCV (80.0-97.0) fL MCH (27.0-32.0) pg MCHC (32.0-37.0) g/dL Plt Count (140-440) 10*3/uL MPV (9.5-12.2) fL Immature Gran % (Auto) % Neutrophils % % Lymphocytes % % Monocytes % % Eosinophils % % Basophils % % Immature Gran # (0.00-0.04) 10*3/uL Neutrophils # (1.80-7.70) 10*3/uL Lymphocytes # (0.90-5.00) 10*3/uL Monocytes # (0.20-1.00) 10*3/uL Eosinophils # (0.04-0.35) 10*3/uL Basophils # (0.00-0.10) 10*3/uL PT (10.0-12.5) sec INR (<1.2) APTT (22.0-30.0) sec Sodium (137-145) mmol/L Potassium (3.5-5.1) mmol/L Chloride (98-107) mmol/L Carbon Dioxide (22-30) mmol/L Anion Gap mmol/L BUN (7-17) mg/dL Creatinine (0.52-1.04) mg/dL Est GFR (CKD-EPI)AfAm (>60 ml/min/1.73 sqM) Est GFR (CKD-EPI)NonAf (>60 ml/min/1.73 sqM) Glucose (74-99) mg/dL Plasma Lactic Acid Julio 1.1 (0.7-2.0) mmol/L Calcium (8.4-10.2) mg/dL Magnesium (1.6-2.3) mg/dL Total Bilirubin (0.2-1.3) mg/dL AST (14-36) U/L ALT (4-34) U/L Alkaline Phosphatase (38-126) U/L Troponin I (0.000-0.034) ng/mL Total Protein (6.3-8.2) g/dL Albumin (3.5-5.0) g/dL Lipase (23-300) U/L Stool Occult Blood Negative (Negative) Blood Type B Positive Blood Type Recheck B Pos Bld Type Recheck Status No Antibody Screen NEGATIVE Spec Expiration Date 01/06/2025 - 231501/03/25 Range/Units 11:53 WBC (4.50-10.00) 10*3/uL RBC (4.10-5.20) 10*6/uL Hgb (12.0-15.0) g/dL Hct (37.2-46.3) % MCV (80.0-97.0) fL MCH (27.0-32.0) pg MCHC (32.0-37.0) g/dL Plt Count (140-440) 10*3/uL MPV (9.5-12.2) fL Immature Gran % (Auto) % Neutrophils % % Lymphocytes % % Monocytes % % Eosinophils % % Basophils % % Immature Gran # (0.00-0.04) 10*3/uL Neutrophils # (1.80-7.70) 10*3/uL Lymphocytes # (0.90-5.00) 10*3/uL Monocytes # (0.20-1.00) 10*3/uL Eosinophils # (0.04-0.35) 10*3/uL Basophils # (0.00-0.10) 10*3/uL PT (10.0-12.5) sec INR (<1.2) APTT (22.0-30.0) sec Sodium (137-145) mmol/L Potassium (3.5-5.1) mmol/L Chloride (98-107) mmol/L Carbon Dioxide (22-30) mmol/L Anion Gap mmol/L BUN (7-17) mg/dL Creatinine (0.52-1.04) mg/dL Est GFR (CKD-EPI)AfAm (>60 ml/min/1.73 sqM) Est GFR (CKD-EPI)NonAf (>60 ml/min/1.73 sqM) Glucose (74-99) mg/dL Plasma Lactic Acid Julio (0.7-2.0) mmol/L Calcium (8.4-10.2) mg/dL Magnesium (1.6-2.3) mg/dL Total Bilirubin (0.2-1.3) mg/dL AST (14-36) U/L ALT (4-34) U/L Alkaline Phosphatase (38-126) U/L Troponin I 0.150 H* (0.000-0.034) ng/mL Total Protein (6.3-8.2) g/dL Albumin (3.5-5.0) g/dL Lipase (23-300) U/L Stool Occult Blood (Negative) Blood Type Blood Type Recheck Bld Type Recheck Status Antibody Screen Spec Expiration Date - EKG Data -: EKG Interpreted by Me EKG Comments: 12-lead Electrocardiogram Interpretation Note EKG was reviewed and interpreted by myself. 12-lead ECG performed at 0830 is interpreted by me as revealing sinus tachycardia at a rate of 122 beats per minute. [place] normal. Nonspecific ST segment T wave abnormality present.. There were no obvious acute ST or T wave abnormalities to suggest myocardial ischemia or injury. R wave progression across the precordium was satisfactory. By my interpretation this EKG is non-diagnostic for acute ischemia. 12-lead Electrocardiogram Interpretation Note EKG was reviewed and interpreted by myself. 12-lead ECG performed at 1318 is interpreted by me as revealing normal sinus rhythm at a rate of 62 beats per minute. [place] normal. MD interval is 182 ms, QRS duration is 98 ms, QTc is 472 ms.. There were no ST or T wave abnormalities to suggest myocardial ischemia or injury. R wave progression across the precordium was satisfactory. By my interpretation this EKG is non-diagnostic for acute ischemia. No significant dynamic changes present. Critical Care Time Critical Care Time: Yes Total Critical Care Time: 31 Disposition Clinical Impression: Abdominal pain of unknown etiology, NSTEMI (non-ST elevated myocardial infarction) Disposition: ADMITTED IP TO THIS [facility] Condition: Stable Referrals: None,Stated [Primary Care Provider] - 1-2 days Time of Disposition: 14:00
[2025-01-03] MEDS: SODIUM CHLORIDE 0.9% 1,000 ML IV STA (15:54)
[2025-01-03] MEDS ORDERED: hydrALAZINE HCL 25 MG TAB PO PRN (18:47)
[2025-01-03] MEDS ORDERED: amLODIPine 5 MG TAB PO SCH (19:00)
--- NOTE | 2025-01-03 19:07 | P.HPIM ---
History of Present Illness This is a pleasant 74 years old female with past medical history of multiple medical problems as below. Presents because of high blood pressure. Also complaining from left-sided chest pain for about 1 week, patient states it is 8/10 in severity of the left lateral chest that is a constant pain and sometimes gets sharp and aggravated. And becomes feel like an electric shock but these are only sporadic episodes. Her pain is worse with movement or when she lies on the left side, no known relieving factors. Also she noticed her blood pressure was elevated. Patient was suspicion she has a black bowel movement and there was blood in her stool so also she got concerned but patient denies taking any extra blood thinners or NSAIDs pain killers, making GI bleed secondary to medication very unlikely. Patient over 2 weeks she has been complaining from on and off headache and dizziness. She describes her dizziness as she is going to pass out. Currently she denies any headache or dizziness or presyncope. No urinary symptoms, she has nausea vomiting or abdominal pain. No weakness or numbness. Patient hemodynamically stable and afebrile, blood pressure slightly elevated 160/81 Patient has unremarkable CBC, BMP and LFT. Troponin elevated 0.15 and 0.12 Occult blood in the stool came back negative EKG showing sinus rhythm at [address]-T changes. Patient started on heparin drip and with close monitoring of PTT and hemoglobin, patient informed and she agrees. Also patient was started on some normal saline. Review of Systems Review of systems CONSTITUTIONAL: No fever, no malaise, no fatigue. HEENT: No recent visual problems or hearing problems. Denied any sore throat. CARDIOVASCULAR: No orthopnea, PND, no palpitations, no syncope. PULMONARY: No shortness of breath, no cough, no hemoptysis. GASTROINTESTINAL: No diarrhea, no nausea, no vomiting, no abdominal pain. Nor moactive bowel sounds. NEUROLOGICAL: No headaches, no weakness, no numbness. HEMATOLOGICAL: Denies any bleeding or petechiae. GENITOURINARY: Denies any burning micturition, frequency, or urgency. MUSCULOSKELETAL/RHEUMATOLOGICAL: Denies any joint pain, swelling, or any muscle pain. ENDOCRINE: Denies any polyuria or polydipsia. Past Medical History Past Medical History: Asthma, Deep Vein Thrombosis (DVT), Fibromyalgia, GERD/Reflux, GI Bleed, Hyperlipidemia, Hypertension, Pneumonia, Pulmonary Embolus (PE), Rheumatoid Arthritis (RA), Thyroid Disorder Additional Past Medical History / Comment(s): Hx of multiple PEs bilaterally, PUD, "inflammed stomach", hiatal hernia, IBS, colitis, diverticular dx, rectal bleed, bronchitis, migraines, low back pain, spinal stenosis, past vertigo once, migraines, hypothyroid, hayfever, sinus problems, neuropathy to bilat lower legs and bilat arms from the elbows down, "leaky heart valve" "anurysm on one of my valves""They're just watching it", environmental allergies. History of Any Multi-Drug Resistant Organisms: None Reported Past Surgical History: Bariatric Surgery, Joint Replacement, Orthopedic Surgery, Tonsillectomy Additional Past Surgical History / Comment(s): lap band-then removed, bilateral knee scopes with R side done twice, bilateral total knee replacements lt side x2,colonoscopy/EGD, D&C, cervical fusion, disc replacement to lower back with rods placed. Past Anesthesia/Blood Transfusion Reactions: Motion Sickness, Postoperative Nausea & Vomiting (PONV) Additional Past Anesthesia/Blood Transfusion Reaction / Comment(s): Has had blood transfusion with no reaction. Past Psychological History: Anxiety, Depression Smoking Status: Former smoker Past Alcohol Use History: None Reported Past Drug Use History: Marijuana - Past Family History Father Family Medical History: Cancer Additional Family Medical History / Comment(s): Father is 88yrs old and has bladder cancer and a heart condition. Mother Family Medical History: Myocardial Infarction ([place]) Additional Family Medical History / Comment(s): Mother of a massive [place] at the age of 58yrs. Medications and Allergies Home Medications Medication Instructions Recorded Confirmed Type FLUoxetine HCL [PROzac] 40 mg PO DAILY 01/31/17 01/03/25 History Losartan Potassium 100 mg PO DAILY 08/07/23 01/03/25 History Nature Made Super B Complex 1 tab PO DAILY 08/07/23 01/03/25 History diphenhydrAMINE HCL [Benadryl] 25 mg PO HS 08/07/23 01/03/25 History Linaclotide [Linzess] 290 mcg PO DAILY 08/11/23 01/03/25 History Cranberry Fruit Concentrate [Azo 250 mg PO DAILY 01/03/25 01/03/25 History Cranberry] Multivit-Min/Iron/Folic/Lutein 1 tab PO DAILY 01/03/25 01/03/25 History [Centrum Silver Women Tablet] Allergies Allergy/AdvReac Type Severity Reaction Status Date / Time Iodinated Contrast Media Allergy Anaphylaxis Verified 01/03/25 15:09 [Iodinated Contrast Media - IV Dye] sulfamethoxazole Allergy Anaphylaxis Verified 01/03/25 15:09 [From Bactrim] trimethoprim [From Bactrim] Allergy Anaphylaxis Verified 01/03/25 15:09 surgical glue Allergy Rash/Hives, Uncoded 01/03/25 15:09 cellulitis surgical tape Allergy Rash/Hives Uncoded 01/03/25 15:09 Physical Exam Vitals: Vital Signs Temp Pulse Pulse Resp BP Pulse Ox 01/03/25 15:50 75 17 164/81 98 01/03/25 14:32 75 18 174/84 100 01/03/25 13:29 62 15 126/78 100 01/03/25 11:46 78 01/03/25 11:40 89 19 176/122 100 01/03/25 08:21 97.9 F 122 H 24 183/93 99 Intake and Output 01/03/25 01/03/25 01/03/25 06:59 14:59 22:59 Other: Weight 86.183 kg GENERAL: The patient is alert and oriented x3, not in any acute distress. Well developed, well nourished. HEENT: Pupils are round and equally reacting to light. EOMI. No scleral icterus. No conjunctival pallor. Normocephalic, atraumatic. No pharyngeal erythema. No thyromegaly. CARDIOVASCULAR: S1 and S2 present. No murmurs, rubs, or gallops. PULMONARY: Chest is clear to auscultation, no wheezing , no crackles. ABDOMEN: Soft, nontender, nondistended, normoactive bowel sounds. No palpable organomegaly. MUSCULOSKELETAL: No joint swelling or deformity. EXTREMITIES: No cyanosis, clubbing, or pedal edema. NEUROLOGICAL: Gross neurological examination did not reveal any focal deficits. SKIN: No rashes. no petechiae. Results CBC & Chem 7: 01/03/25 09:16 01/03/25 09:16 Labs: Abnormal Lab Results - Last 24 Hours (Table) 01/03/25 01/03/25 01/03/25 Range/Units 09:16 09:16 11:53 MPV 9.2 L (9.5-12.2) fL Potassium 3.4 L (3.5-5.1) mmol/L BUN 18 H (7-17) mg/dL Glucose 110 H (74-99) mg/dL Troponin I 0.150 H* (0.000-0.034) ng/mL 01/03/25 Range/Units 16:25 MPV (9.5-12.2) fL Potassium (3.5-5.1) mmol/L BUN (7-17) mg/dL Glucose (74-99) mg/dL Troponin I 0.122 H* (0.000-0.034) ng/mL Assessment and Plan Assessment: Non-STEMI Recurrent presyncope, most likely cardiac History of GI bleed, she with reports of black stool on admission. Occult blood in stool was negative. Continue close monitoring of hemoglobin every 6 hours. Hypertension History of DVT/PE History of irritable bowel syndrome and colitis and diverticular disease Migraine Low back pain Plan: Continue with heparin drip Patient received aspirin Continue close monitoring of cardiac function. And vitals. Telemetry monitoring Cardiology team consult Monitor PTT and hemoglobin closely. Monitor for any GI bleed. Add Norvasc for blood pressure control. Continue with losartan 100 mg We will add hydralazine as needed for blood pressure control as well as Norvasc on top of her losartan 100 mg daily. Patient blood pressure is slightly elevated but heart rate gets bradycardic sometimes. Will continue close monitoring with telemetry. Resume home medication Symptomatic treatment and pain management Further recommendation with close monitoring Prognosis is guarded GI prophylaxis Protonix DVT prophylaxis heparin
[2025-01-03] MEDS: SODIUM CHLORIDE 0.9% 1,000 ML IV SCH (20:19)
[2025-01-03] MEDS: amLODIPine 5 MG TAB PO STA (20:20)
[2025-01-03] MEDS: MORPHINE SULFATE 4 MG/ML SYRINGE IV PRN (20:23)
[2025-01-03 20:33] LABS: Basophils # (A) 0.02 10*3/uL (0.00-0.10); Basophils % (A) 0.4 %; HCT 36.1 % (37.2-46.3); HGB 11.8 g/dL (12.0-15.0); Lymphocytes % (A) 12.7 %; MCH 27.7 pg (27.0-32.0); MCHC 32.7 g/dL (32.0-37.0); MCV 84.7 fL (80.0-97.0); Mean Platelet Volume 9.1 fL (9.5-12.2); Monocytes # (A) 0.06 10*3/uL (0.20-1.00); Monocytes % (A) 1.1 %; Neutrophils # (A) 4.73 10*3/uL (1.80-7.70); Neutrophils % (A) 85.6 %; Platelet Count 275 10*3/uL (140-440); RBC 4.26 10*6/uL (4.10-5.20); RDW 14.3 % (11.5-14.5); WBC 5.52 10*3/uL (4.50-10.00)
[2025-01-03] MEDS: ACETAMINOPHEN TAB 325 MG TAB PO PRN (21:46)
[2025-01-04] MEDS: diphenhydrAMINE 25 MG CAP PO PRN (03:30)
[2025-01-04] MEDS: diphenhydrAMINE 50 MG/ML 1 ML VIAL IVP STA ×2 (05:47→13:32)
[2025-01-04 07:55] LABS: Basophils # (A) 0.04 10*3/uL (0.00-0.10); Basophils % (A) 0.5 %; Eosinophils # (A) 0.01 10*3/uL (0.04-0.35); Eosinophils % (A) 0.1 %; HCT 35.8 % (37.2-46.3); HGB 11.5 g/dL (12.0-15.0); Lymphocytes # (A) 1.86 10*3/uL (0.90-5.00); MCH 27.3 pg (27.0-32.0); MCHC 32.1 g/dL (32.0-37.0); MCV 84.8 fL (80.0-97.0); Mean Platelet Volume 9.1 fL (9.5-12.2); Monocytes % (A) 9.4 %; Neutrophils % (A) 64.7 %; Platelet Count 285 10*3/uL (140-440); RBC 4.22 10*6/uL (4.10-5.20); RDW 14.3 % (11.5-14.5); WBC 7.43 10*3/uL (4.50-10.00)
[2025-01-04 08:07] LABS: INR 1.1 (<1.2); Prothrombin Time 11.7 sec (10.0-12.5)
[2025-01-04 08:31] LABS: ALT 17 U/L (4-34); AST 28 U/L (14-36); African American GFR (CKD) >90 (>60 ml/min/1.73 sqM); Albumin 4.2 g/dL (3.5-5.0); Alkaline Phosphatase 69 U/L (38-126); Anion Gap 6 mmol/L; Blood Urea Nitrogen 18 mg/dL (7-17); Calcium 8.8 mg/dL (8.4-10.2); Carbon Dioxide 28 mmol/L (22-30); Chloride 104 mmol/L (98-107); Glucose 87 mg/dL (74-99); Non-African American GFR(CKD) 88 (>60 ml/min/1.73 sqM); Potassium 3.4 mmol/L (3.5-5.1); Sodium 138 mmol/L (137-145); Total Bilirubin 0.5 mg/dL (0.2-1.3); Total Protein 6.9 g/dL (6.3-8.2)
--- NOTE | 2025-01-04 09:45 | P.CRDCN ---
History of Present Illness History of present illness: HISTORY OF PRESENT ILLNESS: This is a 74-year-old female with a past medical history significant for hypertension, rheumatoid arthritis, chronic pain, and ascending thoracic aneurysm. Patient follows in the office with Dr. Fagan. We have been asked to see the patient in consultation for chest pain. Patient examined at the bedside in the emergency room. Patient presented to the hospital with multiple complaints. Patient reports having an episode of 1 dark bowel movement. She al so reports having some constipation. She states her blood pressure has been running high at home as well. Additionally, she reports having chest discomfort in the middle of her chest. She denied any radiation of the pain. Patient's hemoglobin has remained stable. She was found to have elevated troponins and was started on IV heparin. She currently denies any chest pain or pressure. DIAGNOSTICS: - EKG reveals sinus tachycardia with no signs of acute ischemia. - CTA aorta: 4 cm dilation of ascending thoracic aorta, no abdominal aortic aneurysm, patent mesenteric arteries without stenosis - Laboratory data: WBC 7.43. Hemoglobin 11.5. Platelet count 285. Sodium 138. Potassium of 3.4. BUN 18. Creatinine 0.67. Troponin 0.150. 0.122. 0.084. - Current home cardiac medications include losartan 100 mg daily. - Most recent echocardiogram obtained in June 2024 revealed ejection f raction 55 to 60%, moderate aortic regurgitation, moderate mitral regurgitation, moderate tricuspid regurgitation - Patient underwent Lexiscan stress test in May 2021 which was negative for ischemia REVIEW OF SYSTEMS: At the time of my exam: CONSTITUTIONAL: Denies fever or chills. HEENT: Denies blurred vision, vision changes, or eye pain. Denies hemoptysis CARDIOVASCULAR: Denies chest pain. Denies orthopnea. Denies PND. Denies palpitations RESPIRATORY: Denies shortness of breath. GASTROINTESTINAL: Denies abdominal pain. Denies nausea or vomiting. HEMATOLOGIC: Denies bleeding disorders. GENITOURINARY: Denies any blood in urine. SKIN: Denies pruitis. Denies rash. PHYSICAL EXAM: VITAL SIGNS: Reviewed. GENERAL: Well-developed in no acute distress. HEENT: Head is normocephalic. Pupils are equal, round. Sclerae anicteric. Mucous membranes of the mouth are moist. Neck supple. No JVD or thyromegaly LUNGS: Respirations even and unlabored. Lungs essentially clear to auscultation bilaterally. HEART: Regular rate and rhythm. S1 and S2 heard. ABDOMEN: Soft. Nondistended. Nontender. EXTREMITIES: Normal range of motion. No clubbing or cyanosis. Peripheral pulses intact. No lower extremity edema NEUROLOGIC: Awake and alert. Oriented x 3. ASSESSMENT: Non-STEMI Hypertension Constipation with 1 episode of dark stools, Hemoccult negative Ascending thoracic aortic aneurysm History of rheumatoid arthritis History of chronic pain PLAN: Obtain 2D echo to assess cardiac structure and function Continue IV heparin Add aspirin and atorvastatin Add metoprolol Patient has been started on amlodipine per primary medicine for optimal blood pressure control Resume home dose of losartan N.p.o. Patient to undergo cardiac catheterization with Dr. Fagan either today or Monday. Timing to be determined. Further recommendations pending patient course Nurse practitioner note has been reviewed by physician. Signing provider agrees with the documented findings, assessment, and plan of care documented by COMMUNICATIONS OFFICER as a scribe. Past Medical History Past Medical History: Asthma, Deep Vein Thrombosis (DVT), Fibromyalgia, GERD/Reflux, GI Bleed, Hyperlipidemia, Hypertension, Pneumonia, Pulmonary Embolus (PE), Rheumatoid Arthritis (RA), Thyroid Disorder Additional Past Medical History / Comment(s): Hx of multiple PEs bilaterally, PUD, "inflammed stomach", hiatal hernia, IBS, colitis, diverticular dx, rectal bleed, bronchitis, migraines, low back pain, spinal stenosis, past vertigo once, migraines, hypothyroid, hayfever, sinus problems, neuropathy to bilat lower legs and bilat arms from the elbows down, "leaky heart valve" "anurysm on one of my valves""They're just watching it", environmental allergies. History of Any Multi-Drug Resistant Organisms: None Reported Past Surgical History: Bariatric Surgery, Joint Replacement, Orthopedic Surgery, Tonsillectomy Additional Past Surgical History / Comment(s): lap band-then removed, bilateral knee scopes with R side done twice, bilateral total knee replacements lt side x2,colonoscopy/EGD, D&C, cervical fusion, disc replacement to lower back with rods placed. Past Anesthesia/Blood Transfusion Reactions: Motion Sickness, Postoperative Nausea & Vomiting (PONV) Additional Past Anesthesia/Blood Transfusion Reaction / Comment(s): Has had bl ood transfusion with no reaction. Past Psychological History: Anxiety, Depression Smoking Status: Former smoker Past Alcohol Use History: None Reported Past Drug Use History: Marijuana - Past Family History Father Family Medical History: Cancer Additional Family Medical History / Comment(s): Father is 88yrs old and has bladder cancer and a heart condition. Mother Family Medical History: Myocardial Infarction ([place]) Additional Family Medical History / Comment(s): Mother of a massive [place] at the age of 58yrs. Medications and Allergies Home Medications Medication Instructions Recorded Confirmed Type FLUoxetine HCL [PROzac] 40 mg PO DAILY 01/31/17 01/03/25 History Losartan Potassium 100 mg PO DAILY 08/07/23 01/03/25 History Nature Made Super B Complex 1 tab PO DAILY 08/07/23 01/03/25 History diphenhydrAMINE HCL [Benadryl] 25 mg PO HS 08/07/23 01/03/25 History Linaclotide [Linzess] 290 mcg PO DAILY 08/11/23 01/03/25 History Cranberry Fruit Concentrate [Azo 250 mg PO DAILY 01/03/25 01/03/25 History Cranberry] Multivit-Min/Iron/Folic/Lutein 1 tab PO DAILY 01/03/25 01/03/25 History [Centrum Silver Women Tablet] Allergies Allergy/AdvReac Type Severity Reaction Status Date / Time Iodinated Contrast Media Allergy Anaphylaxis Verified 01/03/25 15:09 [Iodinated Contrast Media - IV Dye] sulfamethoxazole Allergy Anaphylaxis Verified 01/03/25 15:09 [From Bactrim] trimethoprim [From Bactrim] Allergy Anaphylaxis Verified 01/03/25 15:09 surgical glue Allergy Rash/Hives, Uncoded 01/03/25 15:09 cellulitis surgical tape Allergy Rash/Hives Uncoded 01/03/25 15:09 Physical Exam Vitals: Vital Signs Temp Pulse Pulse Resp BP Pulse Ox 01/04/25 06:24 98.2 F 70 18 127/68 100 01/04/25 05:00 58 L 16 124/72 99 01/04/25 04:09 74 154/81 99 01/04/25 03:31 97.9 F 77 18 107/80 95 01/04/25 03:23 60 111/59 95 01/04/25 02:00 69 95/52 98 01/04/25 01:00 70 16 98/52 94 L 01/04/25 00:55 93 132/82 95 01/03/25 23:00 87 136/79 96 01/03/25 21:00 98.2 F 92 16 131/81 99 01/03/25 20:00 139/87 01/03/25 18:10 75 17 136/81 95 01/03/25 15:50 75 17 164/81 98 01/03/25 14:32 75 18 174/84 100 01/03/25 13:29 62 15 126/78 100 01/03/25 11:46 78 01/03/25 11:40 89 19 176/122 100 Results 01/04/25 07:34 01/04/25 07:34 Cardiac Enzymes 01/03/25 01/03/25 01/03/25 Range/Units 09:16 11:53 16:25 AST 25 (14-36) U/L Troponin I 0.150 H* 0.122 H* (0.000-0.034) ng/mL 01/03/25 01/04/25 Range/Units 20:23 07:34 AST 28 (14-36) U/L Troponin I 0.084 H* (0.000-0.034) ng/mL Coagulation 01/03/25 01/03/25 01/04/25 Range/Units 09:16 20:23 07:34 PT 10.5 11.7 (10.0-12.5) sec APTT 23.1 66.5 H (22.0-30.0) sec CBC 01/03/25 01/04/25 Range/Units 20:23 07:34 WBC 5.52 7.43 (4.50-10.00) 10*3/uL RBC 4.26 4.22 (4.10-5.20) 10*6/uL Hgb 11.8 L 11.5 L (12.0-15.0) g/dL Hct 36.1 L 35.8 L (37.2-46.3) % Plt Count 275 285 (140-440) 10*3/uL Comprehensive Metabolic Panel 01/03/25 01/04/25 Range/Units 09:16 07:34 Sodium 140 138 (137-145) mmol/L Potassium 3.4 L 3.4 L (3.5-5.1) mmol/L Chloride 103 104 (98-107) mmol/L Carbon Dioxide 27 28 (22-30) mmol/L BUN 18 H 18 H (7-17) mg/dL Creatinine 0.77 0.67 (0.52-1.04) mg/dL Glucose 110 H 87 (74-99) mg/dL Calcium 9.5 8.8 (8.4-10.2) mg/dL AST 25 28 (14-36) U/L ALT 18 17 (4-34) U/L Alkaline Phosphatase 77 69 (38-126) U/L Total Protein 7.5 6.9 (6.3-8.2) g/dL Albumin 4.7 4.2 (3.5-5.0) g/dL Current Medications Generic Name Dose Route Start Last Admin Trade Name Freq PRN Reason Stop Dose Admin Acetaminophen 325 mg 01/03/25 19:08 01/03/25 21:46 Acetaminophen Tab 325 Mg Tab PO 325 mg Q6HR PRN Administration Fever and/ or Pain Amlodipine Besylate 5 mg 01/04/25 09:00 Amlodipine 5 Mg Tab PO DAILY [facility] Diphenhydramine HCl 25 mg 01/03/25 18:50 01/04/25 03:30 Diphenhydramine 25 Mg Cap PO 25 mg HS PRN Administration Insomnia Fluoxetine HCl 40 mg 01/04/25 09:00 Fluoxetine Hcl 20 Mg Cap PO DAILY [facility] Heparin Sodium (Porcine) 0 unit 01/03/25 13:53 Heparin Sodium 1,000 Un/Ml (10ml Vl) IV PER PROTOCOL PRN Low PTT Protocol Hydralazine HCl 25 mg 01/03/25 18:47 Hydralazine Hcl 25 Mg Tab PO QID PRN Blood Pressure - High Heparin Sodium/Sodium Chloride 250 mls @ 10 mls/hr 01/03/25 14:00 01/03/25 14:39 25,000 unit/ Sodium Chloride IV 11.603 units/kg/hr .Q24H DEYANIRA 10 mls/hr Administration Protocol 11.603 UNITS/KG/HR Sodium Chloride 1,000 mls @ 75 mls/hr 01/03/25 18:45 01/03/25 20:19 Saline 0.9% IV 01/04/25 09:44 Not Given .[id number] [facility] Losartan Potassium 100 mg 01/04/25 09:00 Losartan 50 Mg Tab PO DAILY [facility] Morphine Sulfate 4 mg 01/03/25 14:02 01/04/25 03:45 Morphine Sulfate 4 Mg/Ml Syringe IV 4 mg Q4HR PRN Administration Severe Pain (Scale 7 to 10) Naloxone HCl 0.2 mg 01/03/25 14:02 Naloxone 0.4 Mg/Ml 1 Ml Vial IV Q2M PRN Opioid Reversal Ondansetron HCl 4 mg 01/03/25 14:02 Ondansetron 4 Mg/2 Ml Vial IVP Q8HR PRN Nausea And Vomiting Pantoprazole Sodium 40 mg 01/04/25 09:00 Pantoprazole 40 Mg/10 Ml Vial IV DAILY [facility] 01/04/25 07:34 01/04/25 07:34
[2025-01-04] MEDS: PANTOPRAZOLE 40 MG/10 ML VIAL IV SCH (10:12)
[2025-01-04] MEDS: METOPROLOL TARTRATE 25 MG TAB PO SCH (10:15)
[2025-01-04] MEDS: FLUoxetine HCL 20 MG CAP PO SCH (10:16)
[2025-01-04] MEDS: amLODIPine 5 MG TAB PO SCH (10:16)
[2025-01-04] MEDS: LOSARTAN 50 MG TAB PO SCH (10:17)
[2025-01-04] MEDS ORDERED: ALPRAZolam 0.25 MG TAB PO PRN (10:37)
[2025-01-04] MEDS ORDERED: ALPRAZolam 0.5 MG TAB PO PRN (10:37)
[2025-01-04] MEDS ORDERED: NITROGLYCERIN SL TABS 0.4 MG TAB SUBLINGUAL PRN (10:37)
--- NOTE | 2025-01-04 11:32 | P.PN ---
Subjective This is a pleasant 74 years old female with past medical history of multiple medical problems as below. Presents because of high blood pressure. Also complaining from left-sided chest pain for about 1 week, patient states it is 8/10 in severity of the left lateral chest that is a constant pain and sometimes gets sharp and aggravated. And becomes feel like an electric shock but these are only sporadic episodes. Her pain is worse with movement or when she lies on the left side, no known relieving factors. Also she noticed her blood pressure was elevated. Patient was suspicion she has a black bowel movement and there was blood in her stool so also she got concerned but patient denies taking any extra blood thinners or NSAIDs pain killers, making GI bleed secondary to medication very unlikely. Patient over 2 weeks she has been complaining from on and off headache and dizziness. She describes her dizziness as she is going to pass out. Currently she denies any headache or dizziness or presyncope. No urinary symptoms, she has nausea vomiting or abdominal pain. No weakness or numbness. Patient hemodynamically stable and afebrile, blood pressure slightly elevated 160/81 Patient has unremarkable CBC, BMP and LFT. Troponin elevated 0.15 and 0.12 Occult blood in the stool came back negative EKG showing sinus rhythm at [address]-T changes. Patient started on heparin drip and with close monitoring of PTT and hemoglobin, patient informed and she agrees. Also patient was started on some normal saline. 01/04 Patient today complaining from frontal chest pain about 6-7/10 in severity Her left lateral chest pain from yesterday resolved She remains on heparin drip Vitals and labs look stable Plan for cardiac cath today Objective - Vital Signs Vital signs: Vital Signs Temp 98.1 F 01/04/25 10:00 Pulse 80 01/04/25 10:00 Resp 18 01/04/25 10:00 BP 160/94 01/04/25 10:00 Pulse Ox 99 01/04/25 10:00 FiO2 Intake & Output 01/03/25 01/04/25 01/04/25 18:59 06:59 18:59 Weight 86.183 kg - Exam GENERAL: The patient is alert and oriented x3, not in any acute distress. Well developed, well nourished. HEENT: Pupils are round and equally reacting to light. EOMI. No scleral icterus. No conjunctival pallor. Normocephalic, atraumatic. No pharyngeal erythema. No thyromegaly. CARDIOVASCULAR: S1 and S2 present. No murmurs, rubs, or gallops. PULMONARY: Chest is clear to auscultation, no wheezing , no crackles. ABDOMEN: Soft, nontender, nondistended, normoactive bowel sounds. No palpable organomegaly. MUSCULOSKELETAL: No joint swelling or deformity. EXTREMITIES: No cyanosis, clubbing, or pedal edema. NEUROLOGICAL: Gross neurological examination did not reveal any focal deficits. SKIN: No rashes. no petechiae. - Labs CBC & Chem 7: 01/04/25 07:34 01/04/25 07:34 Labs: Abnormal Lab Results - Last 24 Hours (Table) 01/03/25 01/03/25 01/03/25 Range/Units 11:53 16:25 20:23 Hgb 11.8 L (12.0-15.0) g/dL Hct 36.1 L (37.2-46.3) % MPV 9.1 L (9.5-12.2) fL Lymphocytes # 0.70 L (0.90-5.00) 10*3/uL Monocytes # 0.06 L (0.20-1.00) 10*3/uL Eosinophils # 0.00 L (0.04-0.35) 10*3/uL APTT (22.0-30.0) sec Potassium (3.5-5.1) mmol/L BUN (7-17) mg/dL Troponin I 0.150 H* 0.122 H* (0.000-0.034) ng/mL 01/03/25 01/03/25 01/04/25 Range/Units 20:23 20:23 07:34 Hgb (12.0-15.0) g/dL Hct (37.2-46.3) % MPV (9.5-12.2) fL Lymphocytes # (0.90-5.00) 10*3/uL Monocytes # (0.20-1.00) 10*3/uL Eosinophils # (0.04-0.35) 10*3/uL APTT 66.5 H (22.0-30.0) sec Potassium 3.4 L (3.5-5.1) mmol/L BUN 18 H (7-17) mg/dL Troponin I 0.084 H* (0.000-0.034) ng/mL 01/04/25 Range/Units 07:34 Hgb 11.5 L (12.0-15.0) g/dL Hct 35.8 L (37.2-46.3) % MPV 9.1 L (9.5-12.2) fL Lymphocytes # (0.90-5.00) 10*3/uL Monocytes # (0.20-1.00) 10*3/uL Eosinophils # 0.01 L (0.04-0.35) 10*3/uL APTT (22.0-30.0) sec Potassium (3.5-5.1) mmol/L BUN (7-17) mg/dL Troponin I (0.000-0.034) ng/mL Assessment and Plan Assessment: Non-STEMI Recurrent presyncope, most likely cardiac History of GI bleed, she with reports of black stool on admission. Occult blood in stool was negative. Continue close monitoring of hemoglobin every 6 hours. Hypertension History of DVT/PE History of irritable bowel syndrome and colitis and diverticular disease Migraine Low back pain Plan: Continue with heparin drip Planned for cardiac cath On 01/04 Continue close monitoring of cardiac function. And vitals. Telemetry monitoring Cardiology team consult Monitor PTT and hemoglobin closely. Monitor for any GI bleed. Add Norvasc for blood pressure control. Continue with losartan 100 mg We will add hydralazine as needed for blood pressure control as well as Norvasc on top of her losartan 100 mg daily. Patient blood pressure is slightly elevated but heart rate gets bradycardic sometimes. Will continue close monitoring with telemetry. Resume home medication Symptomatic treatment and pain management Further recommendation with close monitoring Prognosis is guarded GI prophylaxis Protonix DVT prophylaxis heparin
[2025-01-04] MEDS: methylPREDNISolone SOD SUCCI 125 MG/2 ML VIAL IVP ONE (12:47)
[2025-01-04] MEDS: diphenhydrAMINE 50 MG/ML 1 ML VIAL IVP ONE (12:47)
[2025-01-04] MEDS: MIDAZOLAM 2 MG/2 ML VIAL IVP ONE (12:54)
[2025-01-04] MEDS: fentaNYL (PF) 50 MCG/1 ML VIAL IVP ONE (12:54)
[2025-01-04] MEDS: IV FLUID CONTINUATION 1,000 ML IV ONE (12:54)
[2025-01-04] MEDS: HEPARIN SODIUM,PORCINE 10,000 UNIT in SODIUM CHLORIDE 0.9% 1,000 ML IRRIGATION PRN (12:54)
[2025-01-04] MEDS: HEPARIN SODIUM,PORCINE (1 ML) 2,500 UNIT in SODIUM CHLORIDE 0.9% 250 ML IRRIGATION PRN (12:55)
[2025-01-04] MEDS: LIDOCAINE 1% INJ 10MG/ML (20 ML MDV) SQ ONE (12:56)
[2025-01-04] MEDS: VERAPAMIL SYRINGE (5 MG/10 ML) INTRAARTER ONE (13:00)
[2025-01-04] MEDS: HEPARIN SODIUM 1,000 UN/ML (10ML VL) IV ONE (13:02)
[2025-01-04] MEDS: IOPAMIDOL-370 100ML BTL INJ ONE ×2 (13:18→13:19)
[2025-01-04] MEDS ORDERED: RX INFO: IV CONTRAST WAS GIVEN 1 EACH MISC MISCELLANE PRN (13:18)
--- NOTE | 2025-01-04 13:18 | P.CARDCATH ---
Description of Procedure: PROCEDURES PERFORMED: Left heart catheterization, bilateral coronary angiography, ultrasound guided arterial access, left ventriculogram INDICATION: Non-STEMI CONSENT:I have discussed the risks, benefits and alternative therapies for the above-mentioned procedure and for both sedation/analgesia as well as necessary blood product administration, if indicated, as they pertain to this patient. The patient has indicated understanding and acceptance of the risks and procedures discussed. PROCEDURE: After the risks, benefits and alternatives of the above mentioned procedure explained in detail with the patient, informed consent was obtained. Patient was taken to the catheterization lab and prepped and draped in usual fashion. Ultrasound guidance was used to assess for arterial access. 1% lidocaine was used to anesthetize the right radial artery. A 6-[place] sheath was placed in the right radial artery using modified Seldinger technique and ultrasound guidance. Left coronary angiography was performed with a 5-[place] JL 3.5 catheter and right coronary angiography was performed with a 5-[place] FR5 catheter in various views. A 5-[place] FR5 catheter was inserted into the left ventricle and pressure measurements were obtained. A left ventriculogram was performed with a 5 [place] pigtail catheter in the ZAVALA projection with power injection. The right radial sheath was removed and a TR band was placed with hemostasis achieved. The patient tolerated the procedure well. Patient was transported back to the post catheterization holding area in stable condition. Conscious Sedation: Patient was monitored under the direct supervision of myself for conscious sedation using Versed and fentanyl for a total duration of 17 minutes HEMODYNAMICS: Aortic: 172/89 LV: 163/17, LVEDP 20 SELECTIVE CORONARY ARTERIOGRAPHY: LEFT MAIN: The left main is a large caliber vessel which bifurcates into the LAD and circumflex. There is no significant stenosis. LEFT ANTERIOR DESCENDING CORONARY ARTERY: LAD is a large caliber vessel which wraps around to the apex. There is no significant stenosis. LEFT CIRCUMFLEX CORONARY ARTERY: Left circumflex is a moderate caliber vessel without significant stenosis. RIGHT CORONARY ARTERY: The right coronary artery is a large caliber vessel which gives off a PDA and PLV branch and is the dominant vessel. There is no significant stenosis. Left ventriculogram: Left ventricular ejection fraction 60% without wall motion abnormalities FINAL IMPRESSION: 1. Normal coronary arteries as described above. 2. Mildly elevated left sided filling pressures as well as blood pressure 3. Normal left ventricular ejection fraction 60% PLAN: 1. Aggressive risk factor modification per most recent ACC/AHA guidelines. 2. Follow-up in the office in 1-2 weeks.
[2025-01-04] MEDS: SODIUM CHLORIDE 0.9% 1,000 ML in EMPTY BAG 1 BAG IV SCH (13:32)
[2025-01-04] MEDS: methylPREDNISolone SOD SUCCI 125 MG/2 ML VIAL IV STA (13:32)
[2025-01-04] MEDS: ASPIRIN 325 MG TAB PO STA (13:32)
[2025-01-04] MEDS: FAMOTIDINE 20 MG/2 ML VIAL IV STA (13:32)
[2025-01-04] MEDS: ATORVASTATIN 80 MG TAB PO STA (13:32)
[2025-01-04] MEDS: SODIUM CHLORIDE 0.9% 1,000 ML IV SCH (13:45)
[2025-01-04 16:11] VITALS: RESP 16
[2025-01-04] MEDS: ATORVASTATIN 40 MG TAB PO SCH (19:37)
[2025-01-05 00:50] LABS: Chol/HDL Ratio 2.86 Ratio; VLDL Calculation 11.18 mg/dL (5.00-40.00)
[2025-01-05 00:51] LABS: LDL Cholesterol,Calculated 183.8 mg/dL (0.0-131.0)
[2025-01-05] MEDS: ZINC OXIDE PASTE (Z-GUARD) 1 APPLIC TOPICAL PRN (08:09)
[2025-01-05] MEDS: ASPIRIN 81 MG PO SCH (08:09)
--- NOTE | 2025-01-05 09:05 | CA ---
Transthoracic Echo Report Name: Roel Espinoza Age: 74 Gender: F : 1950 Exam Date: 01/04/2025 11:31 Exam Location: [facility] Ht (in): 63 Wt (lb): 190 Ordering Physician: Josiah Marinelli MD Attending/Referring Phys: [id number], [employer] Teller Junaid Ortiz, RD Procedure CPT: Indications: Chest Pain Cardiac Hx: Technical Quality: Good Contrast 1: Total Dose (mL): Contrast 2: Total Dose (mL): MEASUREMENTS (Male / Female) Normal Values 2D ECHO LV Diastolic Diameter PLAX 4.8 cm 4.2 - 5.9 / 3.9 - 5.3 cm LV Systolic Diameter PLAX 3.3 cm IVS Diastolic Thickness 1.1 cm 0.6 - 1.0 / 0.6 - 0.9 cm LVPW Diastolic Thickness 0.9 cm 0.6 - 1.0 / 0.6 - 0.9 cm LV Relative Wall Thickness 0.4 LVOT Diameter 2.0 cm LA Systolic Diameter LX 4.2 cm 3.0 - 4.0 / 2.7 - 3.8 cm LA Volume 66.2 cm??? 18 - 58 / 22 - 52 cm??? LA Volume Index 33.2 cm???/m??? 16 - 28 cm???/m??? DOPPLER AI Peak Velocity 418.0 cm/s AI Peak Gradient 69.9 mmHg AI Pressure Half Time 599.6 ms MV Area PHT 4.5 cm??? Mitral E Point Velocity 66.5 cm/s Mitral A Point Velocity 64.7 cm/s Mitral E to A Ratio 1.0 MV Deceleration Time 170.2 ms TR Peak Velocity 267.4 cm/s TR Peak Gradient 28.6 mmHg Right Atrial Pressure 5.0 mmHg Pulmonary Artery Systolic Pressu 33.6 mmHg Right Ventricular Systolic Press 33.6 mmHg FINDINGS Left Ventricle Left ventricular ejection fraction is estimated at 60-65%. Normal Left ventricular size, systolic function with no obvious regional wall motion abnormalities. Mild concentric left ventricular hypertrophy. Right Ventricle Normal right ventricular size and function. Right ventricular systolic pressure within normal limits. Right Atrium Moderate right atrial dilatation. Left Atrium Mildly increased left atrial diameter. Mildly increased left atrial volume. Mitral Valve Mitral valve thickened. Mitral annular calcification. No mitral stenosis. Mild mitral regurgitation. Aortic Valve Trileaflet aortic valve. No aortic stenosis. Mild aortic regurgitation. Tricuspid Valve Structurally normal tricuspid valve. No tricuspid stenosis. [id number] tricuspid regurgitation. Pulmonic Valve Structurally normal pulmonic valve. No pulmonic stenosis. Trace pulmonic regurgitation. Pericardium No pericardial effusion. Aorta Diltation of proximal ascending aorta (tube) 4.1 cm. Aortic annulus normal. CONCLUSIONS Normal LV function Mild mitral aortic and mild to moderate tricuspid regurgitation Mildly dilated ascending aorta Previewed by: Dr. Balta Noyola MD (Electronically Signed) Final Date: 05 January 2025 09:04
--- NOTE | 2025-01-05 09:29 | P.PN ---
Subjective HISTORY OF PRESENT ILLNESS: This is a 74-year-old female with a past medical history significant for hypertension, rheumatoid arthritis, chronic pain, and ascending thoracic aneurysm. Patient follows in the office with Dr. Fagan. We have been asked to see the patient in consultation for chest pain. Patient examined at the bedside in the emergency room. Patient presented to the hospital with multiple complaints. Patient reports having an episode of 1 dark bowel movement. She also reports having some constipation. She states her blood pressure has been running high at home as well. Additionally, she reports having chest discomfort in the middle of her chest. She denied any radiation of the pain. Patient's hemoglobin has remained stable. She was found to have elevated troponins and was started on IV heparin. She currently denies any chest pain or pressure. DIAGNOSTICS: - EKG reveals sinus tachycardia with no signs of acute ischemia. - CTA aorta: 4 cm dilation of ascending thoracic aorta, no abdominal aortic aneurysm, patent mesenteric arteries without stenosis - Laboratory data: WBC 7.43. Hemoglobin 11.5. Platelet count 285. Sodium 138. Potassium of 3.4. BUN 18. Creatinine 0.67. Troponin 0.150. 0.122. 0.084. - Current home cardiac medications include losartan 100 mg daily. - Most recent echocardiogram obtained in June 2024 revealed ejection fraction 55 to 60%, moderate aortic regurgitation, moderate mitral regurgitation, moderate tricuspid regurgitation - Patient underwent Lexiscan stress test in May 2021 which was negative for ischemia 01/05/2025 Patient is status post cardiac catheterization yesterday with Dr. Fagan revealing normal coronary arteries. Patient examined this morning at bedside. Patient without complaints of chest pain or shortness of breath. Patient reports having abdominal pain this morning that radiates up to her left side which felt similar to the pain she had when she came in. Vital signs are stable. Echocardiogram completed revealing ejection fraction 60 to 65%, no obvious regional wall motion abnormalities, mild aortic regurgitation, mild to moderate tricuspid regurgitation, mild mitral regurgitation PHYSICAL EXAM: VITAL SIGNS: Reviewed. GENERAL: Well-developed in no acute distress. HEENT: Head is normocephalic. Pupils are equal, round. Sclerae anicteric. Mucous membranes of the mouth are moist. Neck supple. No JVD or thyromegaly LUNGS: Respirations even and unlabored. Lungs essentially clear to auscultation bilaterally. HEART: Regular rate and rhythm. S1 and S2 heard. ABDOMEN: Soft. Nondistended. Nontender. EXTREMITIES: Normal range of motion. No clubbing or cyanosis. Peripheral pulses intact. No lower extremity edema NEUROLOGIC: Awake and alert. Oriented x 3. ASSESSMENT: Non-STEMI, status post cardiac catheterization revealing normal coronary arteries Hypertension Constipation with 1 episode of dark stools, Hemoccult negative Ascending thoracic aortic aneurysm History of rheumatoid arthritis History of chronic pain PLAN: Continue current cardiac medications Patient is stable for discharge home today from a cardiac standpoint Patient to follow-up postdischarge in the office with Dr. Fagan Nurse practitioner note has been reviewed by physician. Signing provider agrees with the documented findings, assessment, and plan of care documented by MAG[employer]INE KEEPER as a scribe. Objective - Vital Signs Vital signs: Vital Signs Temp 98.1 F 01/05/25 08:00 Pulse 64 01/05/25 08:00 Resp 16 01/05/25 08:00 BP 152/78 01/05/25 08:00 Pulse Ox 98 01/05/25 08:00 FiO2 Intake & Output 01/04/25 01/05/25 01/05/25 18:59 06:59 18:59 Intake Total 640 540 240 Balance 640 540 240 Weight 86.183 kg 85.8 kg Intake: IV 100 Oral 540 540 240 Other: Voiding Method Toilet # Voids 1 1 - Labs CBC & Chem 7: 01/04/25 07:34 01/04/25 07:34 Labs: Abnormal Lab Results - Last 24 Hours (Table) 01/04/25 01/04/25 Range/Units 10:48 10:48 APTT 52.7 H (22.0-30.0) sec Cholesterol 300.00 H (0.00-200.00) mg/dL LDL Cholesterol, Calc 183.8 H (0.0-131.0) mg/dL HDL Cholesterol 105.00 H (40.00-60.00) mg/dL
[2025-01-05 12:10] VITALS: BP 149/54; PULSE 65; TEMP 97.8
== END 2025-01-05 13:46 | disposition home or self-care (01) | DRG 281 ==
LOC: EC 08:20 → 3SCARD 14:02
PROVIDERS: ADMIT Internal Medicine; ATTEND Internal Medicine
PROC: 4A023N7 Measurement of Cardiac Sampling and Pressure, Left Heart, Percutaneous Approach (ICD-10-PCS; principal; 2025-01-03)
PROC: B2111ZZ Fluoroscopy of Multiple Coronary Arteries using Low Osmolar Contrast (ICD-10-PCS; 2025-01-03)
PROC: B2151ZZ Fluoroscopy of Left Heart using Low Osmolar Contrast (ICD-10-PCS; 2025-01-03)
DX: I21.4 Non-ST elevation (NSTEMI) myocardial infarction (principal); K92.1 Melena; I08.3 Combined rheumatic disorders of mitral, aortic and tricuspid valves; M06.9 Rheumatoid arthritis, unspecified; I10 Essential (primary) hypertension; I71.21 Aneurysm of the ascending aorta, without rupture; K59.00 Constipation, unspecified; R00.1 Bradycardia, unspecified; Z98.1 Arthrodesis status; Z98.84 Bariatric surgery status; Z87.11 Personal history of peptic ulcer disease; Z82.49 Family history of ischemic heart disease and other diseases of the circulatory system; Z86.711 Personal history of pulmonary embolism; Z86.718 Personal history of other venous thrombosis and embolism; Z87.891 Personal history of nicotine dependence; Z79.899 Other long term (current) drug therapy; Z96.653 Presence of artificial knee joint, bilateral
CPT/HCPCS: 36415; 71275; 74174; 80053; 80061; 82272; 83036; 83605; 83690; 83735; 84484; 85025; 85379; 85610; 85730; 86850; 86900; 86901; 93005; 93306; 96361; 96365; 96366; 96375; 96376; 99291